=== PATIENT | female | born 1990 | race Caucasian/White ===

== ENCOUNTER 2017-01-04 18:14 | Emergency (ER) | payer MEDICARE, MEDICAID ==
[~2017-01-04] VITALS: Ht 154.9 cm; Wt 59.0 kg
[~2017-01-04 18:14] MED LIST: AMOXIL500 MG PO; AZITHROMYCIN250 MG PO; BENZONATATE100 MG PO; CIPRO 500MG TA500 MG PO; LORTAB 5/500 501 TAB PO; MOTRIN 400MG.400 MG PO; NIFEDIPINE 10MG10 MG PO; NOMEDS; PHENERGAN 25MG.25 M1 PO; PRENATAL PLUS1 TA1 PO; PYRIDIUM100 M1 PO; TESSALON PERLE200 MG PO; ZITHROMAX Z PA250 MG PO
[2017-01-04 19:06] LABS: LYMPH # 4.5 K/mm3 (0.7-4.5); LYMPH % 39.5 % (10-50.0)
[2017-01-04 19:07] LABS: HEMOGLOBIN 15.6 g/dL (12.2-16.2)
[2017-01-04 19:23] LABS: BUN 16 mg/dL (7-18)
[2017-01-04 19:28] LABS: GFR (ESTIMATED) 87 ML/MIN (59-)
--- NOTE | 2017-01-04 20:43 | Emergency Room Report ---
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 N Clinical Suspician of Infection? N Mental Status: 1 - Regular (Normal Baseline) Sepsis Risk:Low Sepsis Risk Have you (or family members/close friends) recently traveled outside the [place]? N If Yes, where/when: Have you had exposure to infectious disease within the past month? N TB? Other? Specify: Source patient, RN notes reviewed, old records Exam Limitations no limitations Comment pt with lifting couch yesterday - with burning post scapular pain worse with use and touch Cardiac Chest Pain Chest pain indicative of cardiac No Timing/Duration this evening Severity moderate ALLERGIES Coded Allergies: MDX - Cephalexin (Cephalexin) (Severe, [id number]/THROAT 01/04/17) Converted from Generic Allergy: Cephalexin Hcl Converted from Ingredient Allergy: Cephalexin MDX - Cephalosporin (Cephalosporin) (Severe, 01/04/17) Converted from Drug Class Allergy: Cephalosporins MDX - Codeine (Codeine) (Intermediate, I-HIVES 01/04/17) Converted from Ingredient Allergy: Codeine Home Medications Active Scripts Promethazine Hydrochloride (Phenergan 25MG Tab) 25 MG PO Q6H PRN #10 Prov: 06/16/12 Reported Medications No Home Medications (NO HOME MEDICATIONS) History Medical History General CAD? No Angina: No [place]: No Hypertension? No Hyperlipidemia? No CHF? No DVT? No PE? No COPD? No Asthma? Yes Anemia? Yes GERD? No Gastric ulcers? No GI Bleed? No Hernia? No Thyroid Problems? No Hypothyroidism? No CVA? No Seizures? No Diabetes? No Renal Insuffiency? No End Stage Renal Disease? No UTI? Yes Stones? No BPH? No GB Disease: No Nephritic Syndrome? No Asplenia? No Hepatitis? No Sickle Cell Disease? No Arthritis? No Migraines? No Cataracts? No Glaucoma? No MRSA? No HIV? No TB? No Anxiety? Yes Depression? No Cancer? Yes Site: SKIN More? 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 Respiratory denies cough, denies shortness of breath, denies wheezing Cardiovascular denies chest pain, denies palpitations, denies syncope Gastrointestinal denies abdominal pain, denies diarrhea, denies vomiting Genitourinary denies: dysuria, frequency, hesitancy, hematuria. Musculoskeletal see HPI, denies back pain, denies joint pain, denies joint swelling, denies neck pain, other Skin denies rash Psychiatric/Neurological denies headache, denies seizure Physical Exam Vital Signs Vital Signs Date Time Temp Pulse Resp B/P Pulse O2 O2 Flow FiO2 Ox Delivery Rate 01/04 2039 99.0 88 20 111/85 100 01/04 1937 97.9 88 42 119/70 100 01/04 1845 78 18 118/60 100 01/04 1823 97.5 81 18 120/58 100 - WBC >12,000 or <4,000 or 10% bands? 2 or more SIRS Criteria Met? B/P:111/85 MAP:78 Creatinine >2.0? UA output<0.5ml/kg/hr for 2 hrs? Platelet count >100,000? Lactate >2.0mmol/1? INR >1.2 or PTT > than 60 sec? Evidence of Organ Dysfunction? Provider documented clinical suspician of infection? N Sepsis Criteria Count: 0 Sepsis Risk: Low Sepsis Risk General Appearance no apparent distress Eye Exam - bilateral eye PERRL, bilateral eye EOMI Ear, Nose, Throat normal ENT inspection Neck tender lateral Respiratory Status No: respiratory distress. Lung Sounds bilateral: lungs clear. 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 No Results/Orders Laboratory Tests 01/04/171833: Sodium 140, Potassium 3.7, Chloride 103, Carbon Dioxide 27, BUN 16, Creatinine 0.8, Estimated Creat Clear 99, Estimated GFR (MDRD) 87, Glucose 100, Calcium 9.1 , Total Bilirubin 0.6, AST 13 L, ALT 22, Alkaline Phosphatase 63, Creatine Kinase 61, CK-MB (CK-2) Rel Index 1.6, CK and CKMB Interp 1.0, Troponin I < 0.02 , Total Protein 7.7, Albumin 3.7, Globulin 4.0 H, Albumin/Globulin Ratio 0.9 L , WBC 11.3 H, RBC 4.94, Hgb 15.6, Hct 44.5, MCV 90.1, RDW 13.1, Plt Count 277, MPV 6.3 L, Gran % 54.9, Gran # 6.2, Lymphocytes % 39.5, Monocytes % 3.9, Eosinophils % 1.5, Basophils % 0.2, Lymphocytes # 4.5, Monocytes # 0.4, Eosinophils # 0.2, Basophils # 0.0, PUBS MCHC 35.0, MCH 31.6 H Current Medication Orders Sig/Bruna Start time Last Medication Dose Route Stop Time Status Admin Sodium Chloride 10 ML PRN PRN 01/04 1830 DC IV 01/05 1825 Orders Procedure Date/time Status CHEST(2 VIEWS-NOT PORTABLE) 01/04 2037 Active ELECTROCARDIOGRAM REQUEST 01/04 1825 Active CBC WITH AUTO DIFF 01/04 1825 Complete CARDIAC ENZYMES 01/04 1825 Complete CHEM 12 PROFILE 01/04 1825 Complete 12 LEAD EKG-BLUESON (INITIAL) 01/04 UNK Active 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 ST/Twave chgs XRAY/CT/US XRAY/CT/US XRAY chest XR interpretation by reviewed by me Xray Results normal/NAD Departure Departure Time of Disposition 2112 Disposition DC Home or Self Care(routine) Clinical Impression Primary Impression: Acute thoracic myofascial strain Qualifiers: Encounter type: initial encounter Qualified Code: S29.019A - Strain of muscle and tendon of unspecified wall of thorax, initial encounter Condition STABLE Referrals NO REFERRAL (Family) Patient Instructions DI for Thoracic Back Pain Additional Instructions use meds and see pcp for follow up Discharge Counseling Counseled pt/family regarding diagnosis, test results, medications/RX, follow up needs Prescriptions Current Visit Scripts Prednisone (Prednisone 20MG) 20 MG PO BID #10 TAB ED Critical Care Critical Care No at [id number]
--- NOTE | 2017-01-04 20:43 | Emergency Room Report ---
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 N Clinical Suspician of Infection? N Mental Status: 1 - Regular (Normal Baseline) Sepsis Risk:Low Sepsis Risk Have you (or family members/close friends) recently traveled outside the [place]? N If Yes, where/when: Have you had exposure to infectious disease within the past month? N TB? Other? Specify: Source patient, RN notes reviewed, old records Exam Limitations no limitations Comment pt with lifting couch yesterday - with burning post scapular pain worse with use and touch Cardiac Chest Pain Chest pain indicative of cardiac No Timing/Duration this evening Severity moderate ALLERGIES Coded Allergies: MDX - Cephalexin (Cephalexin) (Severe, [id number]/THROAT 01/04/17) Converted from Generic Allergy: Cephalexin Hcl Converted from Ingredient Allergy: Cephalexin MDX - Cephalosporin (Cephalosporin) (Severe, 01/04/17) Converted from Drug Class Allergy: Cephalosporins MDX - Codeine (Codeine) (Intermediate, I-HIVES 01/04/17) Converted from Ingredient Allergy: Codeine Home Medications Active Scripts Promethazine Hydrochloride (Phenergan 25MG Tab) 25 MG PO Q6H PRN #10 Prov: 06/16/12 Reported Medications No Home Medications (NO HOME MEDICATIONS) History Medical History General CAD? No Angina: No [place]: No Hypertension? No Hyperlipidemia? No CHF? No DVT? No PE? No COPD? No Asthma? Yes Anemia? Yes GERD? No Gastric ulcers? No GI Bleed? No Hernia? No Thyroid Problems? No Hypothyroidism? No CVA? No Seizures? No Diabetes? No Renal Insuffiency? No End Stage Renal Disease? No UTI? Yes Stones? No BPH? No GB Disease: No Nephritic Syndrome? No Asplenia? No Hepatitis? No Sickle Cell Disease? No Arthritis? No Migraines? No Cataracts? No Glaucoma? No MRSA? No HIV? No TB? No Anxiety? Yes Depression? No Cancer? Yes Site: SKIN More? 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 Respiratory denies cough, denies shortness of breath, denies wheezing Cardiovascular denies chest pain, denies palpitations, denies syncope Gastrointestinal denies abdominal pain, denies diarrhea, denies vomiting Genitourinary denies: dysuria, frequency, hesitancy, hematuria. Musculoskeletal see HPI, denies back pain, denies joint pain, denies joint swelling, denies neck pain, other Skin denies rash Psychiatric/Neurological denies headache, denies seizure Physical Exam Vital Signs Vital Signs Date Time Temp Pulse Resp B/P Pulse O2 O2 Flow FiO2 Ox Delivery Rate 01/04 2039 99.0 88 20 111/85 100 01/04 1937 97.9 88 42 119/70 100 01/04 1845 78 18 118/60 100 01/04 1823 97.5 81 18 120/58 100 - WBC >12,000 or <4,000 or 10% bands? 2 or more SIRS Criteria Met? B/P:111/85 MAP:78 Creatinine >2.0? UA output<0.5ml/kg/hr for 2 hrs? Platelet count >100,000? Lactate >2.0mmol/1? INR >1.2 or PTT > than 60 sec? Evidence of Organ Dysfunction? Provider documented clinical suspician of infection? N Sepsis Criteria Count: 0 Sepsis Risk: Low Sepsis Risk General Appearance no apparent distress Eye Exam - bilateral eye PERRL, bilateral eye EOMI Ear, Nose, Throat normal ENT inspection Neck tender lateral Respiratory Status No: respiratory distress. Lung Sounds bilateral: lungs clear. 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 No Results/Orders Laboratory Tests 01/04/171833: Sodium 140, Potassium 3.7, Chloride 103, Carbon Dioxide 27, BUN 16, Creatinine 0.8, Estimated Creat Clear 99, Estimated GFR (MDRD) 87, Glucose 100, Calcium 9.1 , Total Bilirubin 0.6, AST 13 L, ALT 22, Alkaline Phosphatase 63, Creatine Kinase 61, CK-MB (CK-2) Rel Index 1.6, CK and CKMB Interp 1.0, Troponin I < 0.02 , Total Protein 7.7, Albumin 3.7, Globulin 4.0 H, Albumin/Globulin Ratio 0.9 L , WBC 11.3 H, RBC 4.94, Hgb 15.6, Hct 44.5, MCV 90.1, RDW 13.1, Plt Count 277, MPV 6.3 L, Gran % 54.9, Gran # 6.2, Lymphocytes % 39.5, Monocytes % 3.9, Eosinophils % 1.5, Basophils % 0.2, Lymphocytes # 4.5, Monocytes # 0.4, Eosinophils # 0.2, Basophils # 0.0, PUBS MCHC 35.0, MCH 31.6 H Current Medication Orders Sig/Bruna Start time Last Medication Dose Route Stop Time Status Admin Sodium Chloride 10 ML PRN PRN 01/04 1830 DC IV 01/05 1825 Orders Procedure Date/time Status CHEST(2 VIEWS-NOT PORTABLE) 01/04 2037 Active ELECTROCARDIOGRAM REQUEST 01/04 1825 Active CBC WITH AUTO DIFF 01/04 1825 Complete CARDIAC ENZYMES 01/04 1825 Complete CHEM 12 PROFILE 01/04 1825 Complete 12 LEAD EKG-BLUESON (INITIAL) 01/04 UNK Active 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 ST/Twave chgs XRAY/CT/US XRAY/CT/US XRAY chest XR interpretation by reviewed by me Xray Results normal/NAD Departure Departure Time of Disposition 2112 Disposition DC Home or Self Care(routine) Clinical Impression Primary Impression: Acute thoracic myofascial strain Qualifiers: Encounter type: initial encounter Qualified Code: S29.019A - Strain of muscle and tendon of unspecified wall of thorax, initial encounter Condition STABLE Referrals NO REFERRAL (Family) Patient Instructions DI for Thoracic Back Pain Additional Instructions use meds and see pcp for follow up Discharge Counseling Counseled pt/family regarding diagnosis, test results, medications/RX, follow up needs Prescriptions Current Visit Scripts Prednisone (Prednisone 20MG) 20 MG PO BID #10 TAB ED Critical Care Critical Care No at [id number]
[2017-01-04] MEDS ORDERED: PREDNISONE 20MG20 MG PO (21:15)
[2017-01-04 21:37] VITALS: BP 107/73
--- NOTE | 2017-01-05 05:49 | RADIOLOGY REPORT PS360 ---
CHEST(2 VIEWS-NOT PORTABLE) HISTORY: chest pain ORDERING PHYSICIAN: Deirdre Venegas MD PATIENT AGE: 26 years COMPARISON: None available FINDINGS: The cardiomediastinal silhouette and pulmonary vascularity are within normal limits. The lungs are clear without infiltrates, suspicious nodules, or pleural effusions. No acute bony abnormalities. IMPRESSION: Negative chest, no acute finding
--- OUTSIDE RECORDS SUMMARY | 2017-01-05 08:30 | External Medical Summary Rpt ---
Author Author , Organization [employer] Address Unknown Phone Unavailable Care Team Providers Care Border Measurer Name Role Phone JOSE MIGUEL DOW, Unavailable Unavailable JOSE MIGUEL DOW [facility], Unavailable Unavailable [facility] DEEPAKTANA Carnes, DEEPAK, Unavailable Unavailable TANA ERIC SOLIS Unavailable Unavailable [facility] Unavailable Unavailable [facility] ALTHEA MURPHY, Unavailable Unavailable ALTHEA MURPHY JASON N, Unavailable Unavailable THERESE DE LA GARZA [facility] Unavailable Unavailable SERVICE, [facility] FARRUKH STUBBS BUCK, Unavailable Unavailable FARRUKH GORDON LAR, GORDON LAR Unavailable Unavailable SARAH GORDON, Unavailable Unavailable SARAH GORDON J G, Unavailable Unavailable Ziggy NUNEZ [facility], Unavailable Unavailable [facility] ALTHEA DALEY, Unavailable Unavailable ALTHEA DALEY NIMCO, MCCORMACK Unavailable Unavailable NIMCO KSENIA RINALDI, MCCORMACK Unavailable Unavailable KENDRA WEI, Unavailable Unavailable KENDRA MCCORMACK [facility], Unavailable Unavailable [facility] Unavailable Unavailable LAB, [facility] ANEST[facility] Unavailable Unavailable [facility], D & Unavailable [facility] DELAMATA, NUNU, Unavailable Unavailable DELAMATA, NUNU [facility] Unavailable Unavailable [facility], Unavailable [facility]available [facility] GAGE, DHIRENKUMAR, Unavailable Unavailable GAGE, DHIRENKUMAR VARSHA ESTEBAN, Unavailable Unavailable VARSHA ESTEBAN FINLEY Unavailable Unavailable [email or web address] Unavailable Unavailable #[id number], [id number] DM GARCIA, Unavailable Unavailable DM GARCIA [facility], [facility] Un[facility] ALTHEA WAITE, Unavailable Unavailable GEVEDON, ALTHEA M GRANDE LEXI, GRANDE LEXI Unavailable Unavailable GRANDE LEXI, GRANDE LEXI Unavailable Unavailable HARPEL BJ, HARPEL Unavailable Unavailable BJ THERESE DAVIS, Unavailable Unavailable THERESE DAVIS [facility] Unavailable Unavailable [facility] Unavailable Unavailable [facility], [facility] FARHANA ANDERS, Unavailable Unavailable FARHANA ANDERS [facility] Unavailable Unavailable P[facility], [facility] SIMONE ESPINAL, Unavailable Unavailable SIMONE ESPINAL MARIA, JONES, Unavailable Unavailable ALTHEA ROSAS, Unavailable Unavailable ALTHEA DAILY ROBERT J, Unavailable Unavailable ALTHEA PEMBERTON III GAUTAM, Unavailable Unavailable IGLESIA III GAUTAM [facility], Unavailable Unavailable [facility], Unavailable Unavailable [facility] EDDIE HIGH, Unavailable Unavailable EDDIE HIGH MAX, JHON P, MAX, Unavailable Unavailable JHON P [facility]RI[facility] DAN[facility], Unavailable Unavailable [facility] D[facility]ISH RICHARD PALOMINO, Unavailable Unavailable RICHARD PALOMINO [facility] Unavailable [facility] KELSIE BRIDGES, Unavailable Unavailable KELSIE BRIDGES MOHAMMAD A, Unavailable Unavailable NEELIMA BERGER A DILSHAD LOWE, Unavailable Unavailable DILSHAD LOWE WILLIAM M, Unavailable Unavailable KELSIE SOTELO A R, PATEL, A Unavailable Unavailable [facility] Unavailable Unavailable LAB, [facility], DAWSON FERMIN Unavailable Unavailable [facility] Unavailable Unavailable AUTHORITY, [facility] KELSIE MENDENHALL, Unavailable Unavailable KELSIE MENDENHALL [facility], Unavailable Unavailable [id number], Unavailable Unavailable [id number] Unavailable Unavailable [id number] # [id number], [facility] [id number] # [id number] NIA BEAR, Unavailable Unavailable NIA BEAR WALTER L, Unavailable Unavailable TAB WYNN SOKAN, KUSHAL O, Unavailable Unavailable SOKAN, KUHSAL O [facility] Un[facility]available T[facility]ATMENT [facility], [facility], Unavailable Unavailable [id number], Unavailable Unavailable [id number] YAYO SANDY, KELSIE, Unavailable Unavailable KELSIE ZEE III, MICHELE M, Unavailable Unavailable CIRA MANRIQUEZ [facility] Unavailable Unavailable OF [place], [facility] Trice ORDONEZ WRIGHT, Unavailable Unavailable MUKESH ALEMAN, Unavailable Unavailable MUKESH VERDIN Continuity of Care Document - 09-07-2007 through 2016 Problems Code Diagnosis DOS Provider Status I959 HYPOTENSION 08-03-2015 [facility] UNSPECIFIED EMS L259 UNSPECIFIED 08-03-2015 [facility] DERMATITIS PHYS UNSPECIFIED CAUSE R000 TACHYCARDIA 08-03-2015 [facility] UNSPECIFIED EMS R209 UNSPECIFIED 08-03-2015 [facility] DISTURBANCE EMS S OF SKIN SENSATION R231 PALLOR 08-03-2015 [facility] N [facility]ERG[facility] PHYS [id number] ALLERGY 08-03-2015 [facility]- UNSPECIFIED [facility] INITIAL EMS ENCOUNTER V154 PERS HX 12-06-2014 [facility] AL TRAUMA PRS [facility] 7862 COUGH 10-21-2014 [facility] 6200 FOLLICULAR 06-17-2012 [facility] CYST OF [facility] OVARY INC 6202 OTHER AND 06-16-2012 [facility] UNSPECIFIED [facility] OVARIAN INC CYST 53597 ERLY ONSET 01-09-2012 KSENIA [facility]CO DELIV DELIV W/WO MENTION ANTPRTM COND 650 NORMAL 01-09-2012 [facility] DELIVERY ANESTH OF THE MURRIETA 99282 FIRST-DEGRE 01-09-2012 KSENIA NIMCO E PERINEAL LACERATION WITH DELIVERY V270 OUTCOME OF 01-09-2012 MCCORMACK [facility] DELIVERY SINGLE LIVEBORN 25881 THREATENED 01-06-2012 MCCORMACK [facility] PREMATURE LABOR ANTEPARTUM V221 SUPERVISION 01-06-2012 MCCORMACK NIMCO OF OTHER NORMAL 13052 EXCESS 2011 KSENIA NIMCO GROWTH AFFECT MGMT MOTH ANTPRTM 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 2011 KSENIA NIMCO IOS ANTEPARTUM COMPLICATIO N 94259 OTH 12-12-2011 [facility] ABNORMALITY -NEC-APC/C V237 INSUFFICIEN 12-12-2011 [facility] FAN T CARE V2389 SUPERVISION 12-12-2011 ERIC FAN OF OTHER HIGH-RISK 7910 PROTEINURIA 11-25-2011 KSENIA NIMCO 83826 MATERNAL RX 10-10-2011 KSENIA NIMCO DEPEND COMPL PG CB/PP UNS EOC V283 ENCOUNTER 09-24-2011 [facility] RINALDI ROUTINE SCREEN MALFORMATIO N ULTRASONIC 4660 ACUTE 09-09-2011 [facility] BRONCHITIS [facility] INC 490 BRONCHITIS 09-09-2011 GRANDE LEXI NOT SPECIFIED ACUTE OR CHRONIC 4770 ALLERGIC 09-24-2010 [facility] URGENT DUE TO TREATMENT A POLLEN 17347 EXTRINSIC 09-24-2010 [facility] ASTHMA, URGENT UNSPECIFIED TREATMENT A V242 ROUTINE 08-07-2010 [facility] [place] V7231 ROUTINE 08-07-2010 [facility] CL[facility]IC OF EXAMINATION [place] 2809 UNSPECIFIED 04-02-2010 [facility] ANEMIA 462 ACUTE 03-24-2010 [facility] 76340 ASTHMA, 03-24-2010 [facility] UNSPECIFIED [facility] , INC UNSPECIFIED STATUS 43306 ASTHMA 03-24-2010 [facility] UNSPECIFIED EMERGENCY WITH SERVICES EXACERBATIO ASSOCIATES N 2859 UNSPECIFIED 03-05-2010 [facility]IA PHYSICIAN GROUP PCC 58740 MATERNAL 03-05-2010 [facility] ANEMIA PHYSICIAN W/DELIVERY GROUP [facility] W/CURRENT PPC V3000 SINGLE 03-03-2010 [facility] VERDIN LIVEBORN [facility] W/O V502 ROUTINE OR 03-03-2010 [facility] VERDIN RITUAL [facility] CIRCUMCISIO N V220 SUPERVISION 02-26-2010 [facility] NORMAL [facility]YSICI[facility] FIRST LAB 51555 ABN MAT 12-25-2009 [facility] GLUCOSE [facility] TOLERANCE INC COMPL PG CB/PP UNS EOC 1121 CANDIDIASIS 12-21-2009 [facility] [place] [facility] 69498 UNSPECIFIED 12-21-2009 [facility] KESHAWN TIS [facility] 04139 ABNORMAL 12-21-2009 [facility] MATERNAL HEALTH GLUCOSE CLINIC OF [place]ANCE [place] ANTEPARTUM [facility] 14106 OTHER 11-21-2009 [facility] THREATENED PHYSICIAN LABOR, GROUP PCC ANTEPARTUM 4619 ACUTE 11-20-2009 ARNOLD, SINUSITIS, JOSE MIGUEL W UNSPECIFIED 18420 HYPEREMESIS 08-11-2009 [facility] W/METAB CLINIC OF DISTURBANCE KESHAWN ANTPRTM [facility] 81291 DEHYDRATION 08-10-2009 [facility] 67524 MILD 08-10-2009 [facility] HYPEREMESIS EMERGENCY GRAVIDARUM SERVICES ANTEPARTUM ASSOCIATES 44892 OTHER 07-31-2009 [facility] SPECIFED HEALTH COMPLICATIO CLINIC OF [place] ANTEPARTUM [facility] V0481 NEED 07-24-2009 [facility] PROPHYLACTI HEALTH C CLINIC OF VACCINATION [place] &INOCULATIO [facility] N FLU V745 SCREENING 07-24-2009 PATHOLOGY & EXAMINATION CYTOLOGY FOR LAB VENEREAL DISEASE 6260 ABSENCE OF 07-16-2009 [facility] MEN[facility]ATIO PHYSICIANS N LAB 3671 MYOPIA 07-13-2009 [facility] 4659 ACUTE URIS 07-03-2009 [facility] EMERGENCY UNSPECIFIED SERVICES SITE ASSOCIATES 08538 UNSPECIFIED 02-18-2009 [facility]RETHRITIS [facility] 5990 URINARY 02-18-2009 [facility] TRACT [facility] INFECTION INC SITE NOT SPECIFIED 75162 ABDOMINAL 02-18-2009 [place] [place], AMBULANCE GENERALIZED SERVICE 9779 POISONING 01-02-2009 [facility] UNSPECIFIED VFD INC DRUG/MEDICI NAL SUBSTANCE 11136 INSOMNIA 01-01-2009 [facility]PEC[facility] 65446 HYPERVENTIL 01-01-2009 [facility] 9651 POISONING 01-01-2009 [facility] E9500 KITTY&SLF-INF 01-01-2009 [facility] PSN-ANALGES MED [facility] -ANTIPYRET- ANTIRHEUMAT 5259 UNSPECIFIED 12-21-2008 [facility] DISORDER HEALTH TEETH&SUPPO CENTRAL RTING BANK ACCT STRUCTURES 7840 HEADACHE 12-19-2008 [facility] ACCT 463 ACUTE 12-14-2008 [facility] 5206 DISTURBANCE 12-14-2008 [place] [facility] S IN TOOTH FOR ERUPTION ORAL&MAXILL OFACIAL SURGERY V0489 NEED PROPH 12-14-2008 [facility] V[facility]ARE &INOCULAT CENTER OTH VIRAL DZ 3128 OTHER 12-06-2008 DEPT FOR SPECIFIED PUBLIC HLTH DISTURBANCE S OF CONDUCT NEC 8488 OTHER 11-30-2008 [facility] [place] SPECIFIED URGENT SITES OF TREATMENT SPRAINS AND ASSOC STRAINS 6149 UNSPEC 11-17-2008 [facility] [place] DISEASE FE URGENT PELVIC TREATMENT ORGANS&TISS ASSOC UES 938 FOREIGN 11-09-2008 [facility] [place] BODY IN RADIOLOGY DIGESTIVE SYSTEM UNSPECIFIED 54744 OPEN WOUND 10-30-2008 [facility] FOREARM N EMERGENCY WITHOUT PHYS INC MENTION COMPLICATIO N E956 SUICIDE&CARMEL 10-30-2008 [facility] F-INFLICT N EMERGENCY INJURY PHYS INC CUT&PIERCIN G INSTRUM 0088 INTESTINAL 10-24-2008 [facility] INFECTION FAMILY DUE TO HEALTHCARE, OTHER [facility] ORGANISM NEC 92483 DIARRHEA 10-19-2008 [facility] [place] [facility] 80858 ABDOMINAL 10-17-2008 [facility] PAIN RIGHT [facility], [facility] 39495 DYSFUNCTION 09-15-2008 [facility], OF KELSIE Harrell EUSTACHIAN TUBE 28850 OTHER 09-15-2008 [facility], CONVULSIONS KELSIE Harrell 3899 UNSPECIFIED 09-03-2008 [facility] LOSS 34587 MEMORY LOSS 09-03-2008 [facility] N EMERGENCY PHYS INC V700 ROUTINE 08-18-2008 [facility], EXAM@HEALTH [facility] CARE FACL 5589 OTH&UNSPEC 07-30-2008 [facility] NONINFECTIO N EMERGENCY US PHYS INC GASTROENTER ITIS&COLITI S 34668 VOMITING 07-30-2008 [facility] ALONE N EMERGENCY PHYS INC 7061 OTHER ACNE 07-28-2008 [facility] 6259 UNSPEC 07-26-2008 [facility] SYMPTOM N EMERGENCY ASSOC PHYS INC W/FEMALE GENITAL ORGANS 7242 LUMBAGO 07-12-2008 [facility] 8830 OPEN WOUND 07-11-2008 [facility] FINGER N EMERGENCY WITHOUT PHYS INC MENTION COMPLICATIO N E9060 DOG BITE 07-11-2008 [facility] N [facility]ERGENCY PHYS INC 57864 UNSPECIFIED 07-07-2008 Ziggy NUNEZ ASTIGMATISM 89039 REFLUX 06-23-2008 [facility] V409 UNSPECIFIED 05-19-2008 [facility] MENTAL OR AMBULANCE BEHAVIORAL AUTHORITY PROBLEM 29413 HEAD 05-18-2008 RADIOLOGY INJURY, SERVICES UNSPECIFIED 52048 INJURY OF 05-18-2008 [facility] FACE AND SERVICES NECK OTHER AND UNSPECIFIED 9592 INJURY 05-18-2008 [facility] OTHER&UNSPE SERVICES CIFIED SHOULDER&UP PER ARM 8901 OPEN WOUND 02-07-2008 PFLANZE, OF HIP AND KELSIE THIGH COMPLICATED 9160 HIP THI 02-07-2008 [facility] LEG&ANK N EMERGENCY ABRASION/FR PHYSICIAN ICION BURN INC W/O INF E9208 ACC CAUSED 02-07-2008 [facility] OTH SPEC N EMERGENCY CUT&PIERCIN PHYSICIAN G INC INSTRUM/OBJ S 7863 HEMOPTYSIS 11-02-2007 ALTHEA PEMBERTON 9399 FOREIGN 11-02-2007 NIECY, BODY UNSPEC ALTHEA Ziggy SITE GENITOURINA RY TRACT 77447 SWELLING OF 10-22-2007 JEFFREY LIMB ALTHEA Messina 9594 INJURY 10-22-2007 JEFFREY, OTHER AND ALTHEA Messina UNSPECIFIED HAND EXCEPT FINGER 4242 TRICUSPID 10-19-2007 LAMBERT, VALVE MUKESH DISORDERS SPEC NONRHEUMATI C 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, VALVE MUKESH DISORDERS 7850 UNSPECIFIED 10-19-2007 VERDIN, MUKESH TACHYCARDIA 7852 UNDIAGNOSED 10-19-2007 LAMBERT CARDIAC MUKESH MURMURS 9351 FOREIGN 10-18-2007 MYNOR, BODY IN DILSHAD Harrell ESOPHAGUS E915 FOREIGN 10-18-2007 MYNOR, BODY DILSHAD Harrell ACCIDENTALL Y ENTERING OTHER ORIFICE Medications Na ND Rx Da Fi Fi Am Da Di Ph RX Ph St me C No te ll ll ou ys ag ar # ys at rm s nt no ma ic us Or Da si cy ia de te s n re d OX 68 02 02 4 60 30 RI 86 AR Ac CA 46 -0 -1 .0 TE 92 NO ti RB 20 3- 7- 00 40 LD ve AZ 13 20 20 AI EP 80 11 11 D RI IN 1 PH CH E AR AR 30 MA D 0 CY W MG 03 TA 93 BL 8 ET # 03 93 PA 00 02 02 4 30 30 RI 86 AR Ac RO 09 -0 -1 .0 TE 92 NO ti XE 37 3- 7- 00 41 LD ve TI 11 20 20 AI NE 59 11 11 D RI 8 PH CH HC AR AR L MA D 20 CY W MG 03 93 TA 8 BL # ET 03 93 PA 00 01 01 1 30 30 RI 86 RI Ac RO 09 -2 -2 .0 TE 74 ES ti XE 37 0- 1- 00 17 ER ve TI 11 20 20 AI NE 59 11 11 D W[place] 8 PH CH HC AR AE L MA L 20 CY J MG 03 93 TA 8 BL # ET 03 93 OX 68 01 01 1 60 30 RI 86 RI Ac CA 46 -2 -2 .0 TE 74 ES ti RB 20 0- 1- 00 18 ER ve AZ 13 20 20 AI EP 80 11 11 D WY IN 1 PH CH E AR AE 30 MA L 0 CY J MG 03 TA 93 BL 8 ET # 03 93 AB 59 01 01 1 30 30 RI 86 RI Ac IL 14 -2 -2 .0 TE 74 ES ti IF 80 1- 1- 00 19 ER ve Y 00 20 20 AI 5 71 11 11 D WY MG 3 PH CH AR AE TA MA L BL CY J ET 03 93 8 # 03 93 00 10 09 5 30 30 RI 80 AR Ac 00 -0 -2 .0 TE 28 NO ti 60 5- 1- 00 21 LD ve 11 20 20 AI 73 09 10 D RI 1 PH CH AR AR MA D CY W 03 93 8 # 03 93 AD 00 10 09 5 60 30 RI 80 AR Ac VA 17 -0 -2 .0 TE 28 NO ti IR 30 5- 1- 00 22 LD ve 69 20 20 AI 25 60 09 10 D RI 0- 0 PH CH 50 AR AR MA D DI CY W SK US 03 93 8 # 03 93 OX 68 10 09 5 60 30 RI 80 AR Ac CA 46 -0 -2 .0 TE 28 NO ti RB 20 5- 1- 00 25 LD ve AZ 13 20 20 AI EP 80 09 10 D RI IN 1 PH CH E AR AR 30 MA D 0 CY W MG 03 TA 93 BL 8 ET # 03 93 HY 00 10 09 5 60 30 RI [address] 18 -0 -2 .0 TE 33 NO ti OX 50 5- 1- 00 06 LD ve YZ 61 20 20 AI IN 30 09 10 D RI E 1 PH CH PA AR AR M MA D 25 CY W MG 03 93 CA 8 P # 03 93 ID 00 05 06 1 20 5 RI 83 CL Ac OM 60 -1 -3 .0 TE 43 AR ti ET 35 8- 0- 00 27 KE ve ORELLANA 43 20 20 AI ZI 82 10 10 D DE NE 1 PH RE AR K 25 MA J CY MG 03 TA 93 BL 8 ET # 03 93 ON 00 05 06 1 12 30 RI 83 CL Ac DA 37 -1 -3 .0 TE 43 AR ti NS 80 8- 0- 00 29 KE ve ET 34 20 20 AI RO 49 10 10 D DE N 3 PH RE HC AR K L MA J 8 CY MG 03 TA 93 BL 8 ET # 03 93 FE 00 06 06 90 30 RI 83 ORELLANA Ac RR 67 -2 -2 .0 TE 99 RP ti OU 70 9- 9- 00 24 EL ve S 07 20 20 AI MOLINA 00 10 10 D GE LF 1 PH RA AT AR LD E MA R 32 CY 5 MG 03 93 TA 8 BL # ET 03 93 TE 00 06 06 40 7 RI 83 CL Ac RB 52 -1 -1 .0 TE 83 AR ti UT 71 7- 7- 00 11 KE ve AL 31 20 20 AI IN 80 10 10 D DE E 1 PH RE MOLINA AR K LF MA J AT CY E 2. 03 5 93 MG 8 # TA 03 B 93 ON 00 05 05 1 12 30 RI 83 CL Ac DA 37 -1 -2 .0 TE 43 AR ti NS 80 8- 6- 00 29 KE ve ET 34 20 20 AI RO 49 10 10 D DE N 3 PH RE HC AR K L MA J 8 CY MG 03 TA 93 BL 8 ET # 03 93 ID 00 05 05 1 20 5 RI 83 CL Ac OM 78 -1 -1 .0 TE 43 AR ti ET 11 8- 8- 00 27 KE ve ORELLANA 83 20 20 AI ZI 00 10 10 D DE NE 1 PH RE AR K 25 MA J CY MG 03 TA 93 BL 8 ET # 03 93 ON 00 12 05 4 10 25 RI 81 CL Ac DA 37 -0 -0 .0 TE 21 AR ti NS 80 5- 4- 00 44 KE ve ET 34 20 20 AI RO 49 09 10 D DE N 3 PH RE HC AR K L MA J 8 CY MG 03 TA 93 BL 8 ET # 03 93 ID 00 04 04 20 5 RI 83 CL Ac OM 78 -3 -3 .0 TE 20 AR ti ET 11 0- 0- 00 50 KE ve ORELLANA 83 20 20 AI ZI 00 10 10 D DE NE 1 PH RE AR K 25 MA J CY MG 03 TA 93 BL 8 ET # 03 93 HY 00 04 04 28 7 RI [address] 60 -2 -2 .3 TE 06 AR ti OC 30 0- 1- 99 74 KE ve OR 53 20 20 AI TI 55 10 10 D DE SO 0 PH RE NE AR K MA J 1% CY CR 03 EA 93 M 8 # 03 93 TE 51 04 04 20 3 RI 83 CL Ac RC 67 -2 -2 .0 TE 06 AR ti ON 21 0- 0- 00 75 KE ve AZ 30 20 20 AI OL 20 10 10 D DE E 0 PH RE 0. AR K 8% MA J CY CR EA 03 M 93 8 # 03 93 TE 51 04 04 1 20 3 RI 83 CL Ac RC 67 -1 -1 .0 TE 01 AR ti ON 21 6- 6- 00 05 KE ve AZ 30 20 20 AI OL 20 10 10 D DE E 0 PH RE 0. AR K 8% MA J CY CR EA 03 M 93 8 # 03 93 ON 00 12 04 4 12 30 RI 81 CL Ac DA 37 -0 -0 .0 TE 21 AR ti NS 80 5- 5- 00 44 KE ve ET 34 20 20 AI RO 49 09 10 D DE N 3 PH RE HC AR K L MA J 8 CY MG 03 TA 93 BL 8 ET # 03 93 ID 00 02 03 1 20 5 RI 82 CL Ac OM 78 -1 -2 .0 TE 10 AR ti ET 11 1- 8- 00 75 KE ve ORELLANA 83 20 20 AI ZI 00 10 10 D DE NE 1 PH RE AR K 25 MA J CY MG 03 TA 93 BL 8 ET # 03 93 ME 00 03 03 1 21 6 RI 82 AR Ac TH 60 -1 -1 .0 TE 56 NO ti YL 34 6- 6- 00 02 LD ve ID 59 20 20 AI ED 31 10 10 D RI NI 5 PH CH SO AR AR LO MA D NE CY W 4 03 MG 93 8 DO # SE 03 PK 93 AZ 59 03 03 1 6. 5 RI 82 AR Ac IT 76 -1 -1 00 TE 56 NO ti HR 23 6- 6- 0 07 LD ve OM 06 20 20 AI YC 00 10 10 D RI IN 1 PH CH AR AR 25 MA D 0 CY W MG 03 TA 93 BL 8 ET # 03 93 FE 00 03 03 6 30 30 RI 82 CL Ac RR 67 -1 -1 .0 TE 47 AR ti OU 70 0- 0- 00 88 KE ve S 07 20 20 AI MOLINA 00 10 10 D DE LF 1 PH RE AT AR K E MA J 32 CY 5 MG 03 93 TA 8 BL # ET 03 93 59 03 03 1 8. 16 RI 82 CL Ac 31 -0 -0 50 TE 44 AR ti 00 8- 8- 0 42 KE ve 57 20 20 AI 92 10 10 D DE 0 PH RE AR K MA J CY 03 93 8 # 03 93 AD 00 10 03 5 60 30 RI 80 AR Ac VA 17 -0 -0 .0 TE 28 NO ti IR 30 5- 5- 00 22 LD ve 69 20 20 AI 25 60 09 10 D RI 0- 0 PH CH 50 AR AR MA D DI CY W SK US 03 93 8 # 03 93 ON 00 12 03 4 12 30 RI 81 CL Ac DA 37 -0 -0 .0 TE 21 AR ti NS 80 5- 5- 00 44 KE ve ET 34 20 20 AI RO 49 09 10 D DE N 3 PH RE HC AR K L MA J 8 CY MG 03 TA 93 BL 8 ET # 03 93 ID 00 02 02 00 20 5 RI 82 CL Ac OM 78 -1 -2 .0 TE 10 AR ti ET 11 1- 6- 00 75 KE ve ORELLANA 83 20 20 AI ZI 00 10 10 D DE NE 1 PH RE AR K 25 M J #3 MG 93 8 TA BL ET ON 00 12 02 02 12 30 RI 81 CL Ac DA 37 -0 -1 .0 TE 21 AR ti NS 80 5- 1- 00 44 KE ve ET 34 20 20 AI RO 49 09 10 D DE N 3 PH RE HC AR K L M J 8 #3 MG 93 8 TA BL ET PN 42 11 02 01 30 30 RI 80 AR Ac V- 19 -1 -1 .0 TE 79 NO ti DH 20 0- 1- 00 40 LD ve A 32 20 20 AI SO 13 09 10 D RI FT 0 PH CH GE AR AR L M D #3 W 93 8 ID 68 01 01 00 30 7 RI 81 CL Ac OM 38 -1 -2 .0 TE 78 AR ti ET 20 9- 8- 00 04 KE ve ORELLANA 04 20 20 AI ZI 00 10 10 D DE NE 1 PH RE AR K 12 M J .5 #3 93 MG 8 TA BL ET ON 00 12 01 01 12 30 RI 81 CL Ac DA 37 -0 -1 .0 TE 21 AR ti NS 80 5- 4- 00 44 KE ve ET 34 20 20 AI RO 49 09 10 D DE N 3 PH RE HC AR K L M J 8 #3 MG 93 8 TA BL ET ID 68 12 01 00 30 7 RI 81 CL Ac OM 38 -2 -1 .0 TE 49 AR ti ET 20 9- 4- 00 44 KE ve ORELLANA 04 20 20 AI ZI 00 09 10 D DE NE 1 PH RE AR K 12 M J .5 #3 93 MG 8 TA BL ET ID 68 12 12 00 30 7 RI 81 CL Ac OM 38 -1 -3 .0 TE 32 AR ti ET 20 5- 1- 00 16 KE ve ORELLANA 04 20 20 AI ZI 00 09 09 D DE NE 1 PH RE AR K 12 M J .5 #3 93 MG 8 TA BL ET HY 00 10 12 01 60 30 RI [address] 18 -0 -1 .0 TE 33 NO ti OX 50 5- 7- 00 06 LD ve YZ 61 20 20 AI IN 30 09 09 D RI E 1 PH CH PA AR AR M M D 25 #3 W 93 MG 8 CA P ON 00 12 12 00 12 30 RI 81 CL Ac DA 37 -0 -1 .0 TE 21 AR ti NS 80 5- 7- 00 44 KE ve ET 34 20 20 AI RO 49 09 09 D DE N 3 PH RE HC AR K L M J 8 #3 MG 93 8 TA BL ET ID 00 11 12 00 20 5 RI 80 CL Ac OM 78 -1 -0 .0 TE 90 AR ti ET 11 7 3- 00 15 KE ve ORELLANA 83 20 20 AI ZI 00 09 09 D DE NE 1 PH RE AR K 25 M J #3 MG 93 8 TA BL ET 59 11 11 00 30 30 RI 80 AR Ac 63 -1 -1 .0 TE 79 NO ti 00 0- 9- 00 40 LD ve 41 20 20 AI 83 09 09 D RI 0 PH CH AR AR M D #3 W 93 8 AM 65 10 11 00 30 10 RI 80 SO Ac OX 86 -2 -0 .0 TE 60 KA ti IC 20 7 5- 00 03 N ve IL 01 20 20 AI BA LI 70 09 09 D BA N 5 PH TU 50 AR ND 0 M E MG #3 O 93 CA 8 PS UL E BE 65 10 11 00 15 5 RI 80 SO Ac NZ 16 -2 -0 .0 TE 60 KA ti ON 20 01 N ve AT 53 20 20 AI BA AT 71 09 09 D BA E 0 PH TU 20 AR ND 0 M E MG #3 O 93 CA 8 PS UL E CI 55 10 10 00 15 30 RI 80 AR Ac TA 11 -0 -2 .0 TE 28 NO ti LO 10 5- 2- 00 27 LD ve ID 34 20 20 AI AM 40 09 09 D RI 1 PH CH HB AR AR R M D 40 #3 W 93 MG [address] 00 10 10 00 60 30 RI 80 AR Ac RA 00 -0 -2 .0 TE 33 NO ti TT 23 5- 2- 00 05 LD ve ER 22 20 20 AI A 83 09 09 D RI 25 0 PH CH AR AR MG M D #3 W CA 93 PS 8 UL E AD 00 10 10 00 60 30 RI 80 AR Ac VA 17 -0 -2 .0 TE 28 NO ti IR 30 5- 2- 00 22 LD ve 69 20 20 AI 25 60 09 09 D RI 0- 0 PH CH 50 AR AR M D DI #3 W SK 93 US 8 OX 68 10 10 00 60 30 RI 80 AR Ac CA 46 -0 -2 .0 TE 28 NO ti RB 20 5- 2- 00 25 LD ve AZ 13 20 20 AI EP 80 09 09 D RI IN 1 PH CH E AR AR 30 M D 0 #3 W MG 93 8 TA BL ET 00 10 10 00 50 25 RI 80 AR Ac 06 -0 -2 .0 TE 28 NO ti 60 5- 2- 00 24 LD ve 49 20 20 AI 45 09 09 D RI 5 PH CH AR AR M D #3 W 93 8 HY 00 10 10 00 60 30 RI [address] 18 -0 -2 .0 TE 33 NO ti OX 50 5- 2- 00 06 LD ve YZ 61 20 20 AI IN 30 09 09 D RI E 1 PH CH PA AR AR M M D 25 #3 W 93 MG 8 CA P 00 10 10 00 30 30 RI 80 AR Ac 00 -0 -2 .0 TE 28 NO ti 60 5- 2- 00 21 LD ve 11 20 20 AI 73 09 09 D RI 1 PH CH AR AR M D #3 W 93 8 HY 00 03 05 00 60 30 WA [address] 18 -3 -0 .0 LG 98 RA ti OX 50 1- 7- 00 RE 41 BE ve YZ 61 20 20 EN RG IN 30 09 09 S E 1 #1 DA PA 03 M 15 D 25 MG CA P OX 68 03 05 00 60 30 WA 17 SH Ac CA 46 -3 -0 .0 LG 98 RA ti RB 20 1- 7- 00 RE 40 BE ve AZ 13 20 20 EN RG EP 80 09 09 S IN 1 #1 DA E 03 30 15 D 0 MG TA BL ET CI 65 03 05 00 30 30 WA 17 SH Ac TA 86 -3 -0 .0 LG 98 RA ti LO 20 1- 7- 00 RE 36 BE ve ID 00 20 20 EN RG AM 70 09 09 S 1 #1 DA HB 03 R 15 D 40 MG TA BL ET 00 03 05 00 30 30 WA 17 SH Ac 00 -1 -0 .0 LG 98 RA ti 60 8- 7- 00 RE 42 BE ve 11 20 20 EN RG 73 09 09 S 1 #1 DA 03 15 D ME 00 04 04 00 21 6 RI 24 CL Ac TH 60 -0 -2 .0 TE 08 AR ti YL 34 9- 3- 00 4 K ve ID 59 20 20 AI RO ED 31 09 09 D BE NI 5 #7 RT SO 89 S LO 2 NE 4 MG DO SE PK AM 65 04 04 00 15 5 RI 24 CL Ac OX 86 -0 -2 .0 TE 08 AR ti IC 20 9- 3- 00 5 K ve IL 01 20 20 AI RO LI 70 09 09 D BE N 5 #7 RT 50 89 S 0 2 MG CA PS UL E 00 03 04 00 30 30 TH 50 SH Ac 00 -1 -2 .0 E 31 RA ti 60 8- 3- 00 ID 35 BE ve 11 20 20 ES RG 75 09 09 CR 4 IP DA TI ON D PA D OX 00 04 04 00 20 4 RI 24 CL Ac YC 40 -0 -2 .0 TE 08 AR ti OD 60 9- 3- 00 6 K ve ON 51 20 20 AI RO E- 20 09 09 D BE AC 1 #7 RT ET 89 S AM 2 IN OP HE N 5- 32 5 AM 00 04 04 00 20 10 RI 24 CL Ac OX 09 -1 -2 .0 TE 31 AR ti -C 32 6- 3- 00 7 K ve LA 27 20 20 AI RO V 53 09 09 D BE 87 4 #7 RT 5- 89 S 12 2 5 MG TA BL ET OX 68 03 04 00 60 30 TH 50 SH Ac CA 46 -3 -0 .0 E 29 RA ti RB 20 9 00 ID 86 BE ve AZ 13 20 20 ES RG EP 80 09 09 CR IN 1 IP DA E TI 30 ON D 0 MG PA D TA BL ET HY 00 03 04 00 60 30 TH [address] 18 -3 -0 .0 E 29 RA ti OX 50 9 ID 85 BE ve YZ 61 20 20 ES RG IN 30 09 09 CR E 1 IP DA PA TI M ON D 25 PA MG D CA P CI 00 03 04 00 30 30 TH 50 SH Ac TA 18 -3 -0 .0 E 29 RA ti LO 50 1 9- 00 ID 84 BE ve ID 37 20 20 ES RG AM 30 09 09 CR 1 IP DA HB TI R ON D 40 PA MG D TA BL ET AM 00 03 04 00 14 7 TH 50 SH Ac OX 78 -3 -0 .0 E 29 RA ti IC 12 1- 9- 00 ID 83 BE ve IL 61 20 20 ES RG LI 30 09 09 CR N 5 IP DA 50 TI 0 ON D MG PA CA D PS UL E ZY 00 01 03 01 14 14 D 11 HI Ac ID 00 -0 -2 .0 & 13 LL ti EX 24 7- 6- 00 R 27 ve A 45 20 20 PH 5 KE ZY 48 09 09 AR LL DI 5 MA Y S CA K 10 RE MG TA BL ET SI 00 02 03 01 30 30 D 11 HI Ac NG 00 -0 -2 .0 & 19 LL ti UL 60 8- 6- 00 R 02 ve AI 11 20 20 PH 0 KE R 72 09 09 AR LL 10 8 MA Y CA K MG RE TA BL ET RA 00 10 03 05 30 30 D 10 HI Ac NI 17 -1 -1 .0 & 58 LL ti TI 24 5- 2- 00 R 41 ve DI 35 20 20 PH 4 KE NE 77 08 09 AR LL 0 MA Y 15 CA K 0 RE MG TA BL ET RA 00 10 02 04 30 30 D 10 HI Ac NI 17 -1 -2 .0 & 58 LL ti TI 24 5- 6- 00 R 41 ve DI 35 20 20 PH 4 KE NE 77 08 09 AR LL 0 MA Y 15 CA K 0 RE MG TA BL ET CI 00 11 02 04 15 30 D 10 HI Ac TA 09 -2 -2 .0 & 87 LL ti LO 34 1- 6- 00 R 72 ve ID 74 20 20 PH 4 KE AM 10 08 09 AR LL 1 MA Y HB CA K R RE 20 MG TA BL ET ID 00 02 02 00 5. 1 D 11 HI Ac OM 78 -1 -2 00 & 38 LL ti ET 11 7- 6- 0 R 40 ve ORELLANA 83 20 20 PH 8 KE ZI 00 09 09 AR LL NE 1 MA Y CA K 25 RE MG TA BL ET SI 00 02 02 00 30 30 D 11 HI Ac NG 00 -0 -2 .0 & 19 LL ti UL 60 8- 6- 00 R 02 ve AI 11 20 20 PH 0 KE R 72 09 09 AR LL 10 8 MA Y CA K MG RE TA BL ET ZY 00 01 02 01 30 30 D 11 HI Ac ID 00 -0 -1 .0 & 13 LL ti EX 24 7- 2- 00 R 27 ve A 45 20 20 PH 5 KE ZY 48 09 09 AR LL DI 5 MA Y S CA K 10 RE MG TA BL ET BA 00 10 02 03 28 28 D 10 HI Ac LZ 55 -1 -1 .0 & 58 LL ti IV 59 5- 2- 00 R 39 ve A 03 20 20 PH 9 KE 28 45 08 09 AR LL 8 MA Y TA CA K BL RE ET CI 00 11 01 03 15 30 D 10 HI Ac TA 09 -2 -3 .0 & 87 LL ti LO 34 1- 0- 00 R 72 ve ID 74 20 20 PH 4 KE AM 10 08 09 AR LL 1 MA Y HB CA K R RE 20 MG TA BL ET 00 11 01 01 46 5 D 10 HI Ac 78 -2 -3 .6 & 87 LL ti 17 1- 0- 00 R 73 ve 05 20 20 PH 8 KE 45 08 09 AR LL 9 MA Y CA K RE RA 00 10 01 03 30 30 D 10 HI Ac NI 17 -1 -3 .0 & 58 LL ti TI 24 5- 0- 00 R 41 ve DI 35 20 20 PH 4 KE NE 77 08 09 AR LL 0 MA Y 15 CA K 0 RE MG TA BL ET 00 10 01 03 30 30 D 10 HI Ac 00 -1 -3 .0 & 58 LL ti 60 5- 0- 00 R 38 ve 11 20 20 PH 7 KE 75 08 09 AR LL 4 MA Y CA K RE BA 00 10 01 02 28 28 D 10 HI Ac LZ 55 -1 -1 .0 & 58 LL ti IV 59 5- 5- 00 R 39 ve A 03 20 20 PH 9 KE 28 45 08 09 AR LL 8 MA Y TA CA K BL RE ET ZY 00 01 01 00 30 30 D 11 HI Ac ID 00 -0 -1 .0 & 13 LL ti EX 24 7- 5- 00 R 27 ve A 45 20 20 PH 5 KE ZY 48 09 09 AR LL DI 5 MA Y S CA K 10 RE MG TA BL ET 00 12 01 00 46 5 D 11 HI Ac 78 -1 -1 .6 & 04 LL ti 17 9- 5- 00 R 29 ve 05 20 20 PH 5 KE 45 08 09 AR LL 9 MA Y CA K RE CI 00 12 01 00 2. 5 D 11 HI Ac TA 09 -1 -0 50 & 04 LL ti LO 34 9- 1- 0 R 29 ve ID 74 20 20 PH 0 KE AM 10 08 09 AR LL 5 MA Y HB CA K R RE 20 MG TA BL ET BA 00 12 01 00 28 5 D 11 HI Ac LZ 55 -1 -0 .0 & 04 LL ti IV 59 9- 1- 00 R 28 ve A 03 20 20 PH 9 KE 28 45 08 09 AR LL 8 MA Y TA CA K BL RE ET ID 00 12 01 00 5. 5 D 11 HI Ac OM 78 -1 -0 00 & 04 LL ti ET 11 9- 1- 0 R 29 ve ORELLANA 83 20 20 PH 2 KE ZI 00 08 09 AR LL NE 1 MA Y CA K 25 RE MG TA BL ET RA 00 12 01 00 5. 5 D 11 HI Ac NI 17 -1 -0 00 & 04 LL ti TI 24 9- 1- 0 R 29 ve DI 35 20 20 PH 3 KE NE 77 08 09 AR LL 0 MA Y 15 CA K 0 RE MG TA BL ET 00 12 01 00 5. 5 D 11 HI Ac 00 -1 -0 00 & 04 LL ti 60 9- 1- 0 R 29 ve 11 20 20 PH 4 KE 75 08 09 AR LL 4 MA Y CA K RE GE 00 12 01 00 5. 5 D 11 HI Ac OD 04 -1 -0 00 & 04 LL ti ON 93 9- 1- 0 R 29 ve 97 20 20 PH 1 KE 40 06 08 09 AR LL 0 MA Y MG CA K RE CA PS UL E 00 10 01 02 30 30 D 10 HI Ac 00 -1 -0 .0 & 58 LL ti 60 5- 1- 00 R 38 ve 11 20 20 PH 7 KE 75 08 09 AR LL 4 MA Y CA K RE BA 00 10 12 01 28 28 D 10 HI Ac LZ 55 -1 -1 .0 & 58 LL ti IV 59 5- 8- 00 R 39 ve A 03 20 20 PH 9 KE 28 45 08 08 AR LL 8 MA Y TA CA K BL RE ET FL 00 12 12 00 1. 1 D 11 WE Ac UC 17 -1 -1 00 & 00 LL ti ON 25 2- 8- 0 R 21 IN ve AZ 41 20 20 PH 6 G OL 21 08 08 AR WY E 1 MA CH 15 CA EL 0 RE E MG M TA BL ET RA 00 10 12 02 30 30 D 10 HI Ac NI 17 -1 -1 .0 & 58 LL ti TI 24 5- 8- 00 R 41 ve DI 35 20 20 PH 4 KE NE 77 08 08 AR LL 0 MA Y 15 CA K 0 RE MG TA BL ET DO 00 12 12 00 14 7 D 11 WE Ac XY 59 -1 -1 .0 & 00 LL ti CY 15 2- 8- 00 R 21 IN ve CL 44 20 20 PH 8 G IN 00 08 08 AR WY E 5 MA CH HY CA EL CL RE E AT M E 10 0 MG CA P CI 00 11 12 00 15 30 D 10 HI Ac TA 09 -2 -0 .0 & 87 LL ti LO 34 1- 4- 00 R 72 ve ID 74 20 20 PH 4 KE AM 10 08 08 AR LL 5 MA Y HB CA K R RE 20 MG TA BL ET DO 00 11 12 00 20 10 D 10 HI Ac XY 59 -2 -0 .0 & 87 LL ti CY 15 1- 4- 00 R 69 ve CL 44 20 20 PH 4 KE IN 00 08 08 AR LL E 5 MA Y HY CA K CL RE AT E 10 0 MG CA P 00 11 12 00 46 5 D 10 HI Ac 78 -2 -0 .6 & 87 LL ti 17 1- 4- 00 R 73 ve 05 20 20 PH 8 KE 45 08 08 AR LL 9 MA Y CA K RE 00 11 12 00 20 10 D 10 HI Ac 09 -2 -0 .0 & 87 LL ti 30 0- 4- 00 R 19 ve 85 20 20 PH 4 KE 20 08 08 AR LL 5 MA Y CA K RE ID 00 11 12 00 10 2 D 10 HI Ac OM 78 -2 -0 .0 & 88 LL ti ET 11 4- 4- 00 R 95 ve ORELLANA 83 20 20 PH 3 KE ZI 00 08 08 AR LL NE 1 MA Y CA K 25 RE MG TA BL ET 00 10 12 01 30 30 D 10 HI Ac 00 -1 -0 .0 & 58 LL ti 60 5- 4- 00 R 38 ve 11 20 20 PH 7 KE 75 08 08 AR LL 4 MA Y CA K RE 00 10 12 00 30 30 D 10 HI Ac 00 -1 -0 .0 & 58 LL ti 60 5- 4- 00 R 38 ve 11 20 20 PH 7 KE 75 08 08 AR LL 4 MA Y CA K RE GE 00 10 12 01 30 30 D 10 HI Ac OD 04 -2 -0 .0 & 64 LL ti ON 93 2- 4- 00 R 71 ve 97 20 20 PH 9 KE 40 06 08 08 AR LL 0 MA Y MG CA K RE CA PS UL E NA 00 11 11 00 14 7 D 10 HI Ac ID 09 -0 -2 .0 & 76 LL ti OX 30 4- 0- 00 R 10 ve EN 14 20 20 PH 6 KE 91 08 08 AR LL 50 0 MA Y 0 CA K MG RE TA BL ET RA 00 10 11 01 30 30 D 10 HI Ac NI 17 -1 -2 .0 & 58 LL ti TI 24 5- 0- 00 R 41 ve DI 35 20 20 PH 4 KE NE 77 08 08 AR LL 0 MA Y 15 CA K 0 RE MG TA BL ET AM 00 11 11 00 20 10 D 10 HI Ac OX 09 -0 -2 .0 & 76 LL ti -C 32 4- 0- 00 R 10 ve LA 27 20 20 PH 7 KE V 53 08 08 AR LL 87 4 MA Y 5- CA K 12 RE 5 MG TA BL ET GE 00 10 11 00 30 30 D 10 HI Ac OD 04 -2 -0 .0 & 64 LL ti ON 93 2- 7- 00 R 71 ve 97 20 20 PH 9 KE 40 06 08 08 AR LL 0 MA Y MG CA K RE CA PS UL E CI 00 10 11 00 15 30 D 10 HI Ac TA 09 -2 -0 .0 & 64 LL ti LO 34 2- 7- 00 R 99 ve ID 74 20 20 PH 1 KE AM 10 08 08 AR LL 5 MA Y HB CA K R RE 20 MG TA BL ET RA 00 10 10 00 30 30 D 10 HI Ac NI 17 -1 -2 .0 & 58 LL ti TI 24 5- 3- 00 R 41 ve DI 35 20 20 PH 4 KE NE 77 08 08 AR LL 0 MA Y 15 CA K 0 RE MG TA BL ET BA 00 10 10 00 28 28 D 10 HI Ac LZ 55 -1 -2 .0 & 58 LL ti IV 59 5- 3- 00 R 39 ve A 03 20 20 PH 9 KE 28 45 08 08 AR LL 8 MA Y TA CA K BL RE ET GE 00 10 10 00 60 30 D 10 HI Ac OD 04 -1 -2 .0 & 58 LL ti ON 93 5- 3- 00 R 38 ve 97 20 20 PH 9 KE 40 06 08 08 AR LL 0 MA Y MG CA K RE CA PS UL E AT 68 09 09 00 60 30 AT 20 No Ac EN 38 -0 -1 .0 RI 37 t ti OL 20 3- 1- 00 UM 81 Av ve OL 02 20 20 ai 20 08 08 PH la 25 1 AR bl MA e MG CY TA BL ET LI 00 05 09 03 60 30 FO 61 WA Ac TH 05 -2 -1 .0 OD 17 LK ti IU 40 2- 1- 00 90 ER ve M 02 20 20 CI 4 CA 02 08 08 TY KE RB 5 LL ON PH EY AT AR D E MA ER RY 45 #6 0 53 MG TB SE 00 09 09 00 30 30 AT 20 No Ac RO 31 -0 -1 .0 RI 38 t ti QU 00 4- 1- 00 UM 30 Av ve EL 27 20 20 ai 21 08 08 PH la 20 0 AR bl 0 MA e MG CY TA BL ET 00 03 08 00 30 30 FO 61 WA Ac 00 -2 -2 .0 OD 14 LK ti 60 7- 8- 00 15 ER ve 11 20 20 CI 9 75 08 08 TY KE 4 LL PH EY AR D MA RY #6 53 AB 59 03 08 00 30 30 FO 61 WA Ac IL 14 -1 -2 .0 OD 13 LK ti IF 80 1- 8- 01 ER ve Y 01 20 20 CI 4 20 01 08 08 TY KE 3 LL MG PH EY AR D TA MA BL RY ET #6 53 49 07 08 01 60 30 FO 61 WA Ac 88 -2 -2 .0 OD 21 LK ti 40 2- 8- 00 56 ER ve 54 20 20 CI 9 41 08 08 TY KE 0 LL PH EY AR D MA RY #6 53 00 08 08 00 28 28 FO 61 No Ac 06 -2 -2 .0 OD 23 t ti 21 0- 8- 00 33 Av ve 25 20 20 CI 7 ai 11 08 08 TY la 5 bl PH e AR MA RY #6 53 LA 00 08 08 00 30 30 FO 61 No Ac WY 17 -0 -2 .0 OD [address] 30 5- 8- 00 40 Av ve AL 64 20 20 CI 0 ai 46 08 08 TY la 20 0 bl 0 PH e MG AR MA TA RY BL ET #6 53 LI 00 05 08 02 60 30 FO 61 WA Ac TH 05 -2 -1 .0 OD 17 LK ti IU 40 2- 4- 90 ER ve M 02 20 20 CI 4 CA 02 08 08 TY KE RB 5 LL ON PH EY AT AR D E MA ER RY 45 #6 0 53 MG TB AT 00 05 08 01 60 30 FO 61 WA Ac EN 78 -2 -1 .0 OD 18 LK ti OL 11 9- 4- 29 ER ve OL 07 20 20 CI 2 81 08 08 TY KE 25 0 LL PH EY MG AR D MA TA RY BL ET #6 53 LA 00 07 08 00 30 30 FO 61 No Ac WY 17 -2 -1 .0 OD [address] 30 9- 4- 00 93 Av ve AL 64 20 20 CI 9 ai 25 08 08 TY la 10 5 bl 0 PH e MG AR MA TA RY BL ET #6 53 SE 00 07 08 00 30 30 FO 61 No Ac RO 31 -2 -1 .0 OD 21 t ti QU 00 9- 4- 00 94 Av ve EL 27 20 20 CI 1 ai 21 08 08 TY la 20 0 bl 0 PH e MG AR MA TA RY BL ET #6 53 49 07 08 00 60 30 FO 61 No Ac 88 -2 -0 .0 OD 21 t ti 40 2- 1- 00 56 Av ve 54 20 20 CI 9 ai 41 08 08 TY la 0 bl PH e AR MA RY #6 53 SE 00 07 08 00 30 30 FO 61 WA Ac RO 31 -2 -0 .0 OD 21 LK ti QU 00 2 56 ER ve EL 27 20 20 CI 8 11 08 08 TY KE 10 0 LL 0 PH EY MG AR D MA TA RY BL ET #6 53 LA 00 07 08 00 15 30 FO 61 No Ac WY 17 -2 -0 .0 OD [address] 30 2 1- 56 Av ve AL 64 20 20 CI 6 ai 25 08 08 TY la 10 5 bl 0 PH e MG AR MA TA RY BL ET #6 53 LI 00 05 07 01 60 30 FO 61 WA Ac TH 05 -2 -0 .0 OD 17 LK ti IU 40 2- 3- 00 90 ER ve M 02 20 20 CI 4 CA 02 08 08 TY KE RB 5 LL ON PH EY AT AR D E MA ER RY 45 #6 0 53 MG TB AT 00 05 06 00 30 30 FO 61 No Ac EN 78 -2 -0 .0 OD 17 t ti OL 11 2- 5- 00 90 Av ve OL 07 20 20 CI 5 ai 81 08 08 TY la 25 0 bl PH e MG AR MA TA RY BL ET #6 53 LI 00 05 06 00 60 30 FO 61 No Ac TH 05 -2 -0 .0 OD 17 t ti IU 40 2- 5- 00 90 Av ve M 02 20 20 CI 4 ai CA 02 08 08 TY la RB 5 bl ON PH e AT AR E MA ER RY 45 #6 0 53 MG TB PA 00 03 04 00 30 30 FO 61 No Ac NT 00 -2 -2 .0 OD 14 t ti OP 80 7- 4- 00 15 Av ve RA 60 20 20 CI 8 ai ZO 60 08 08 TY la LE 1 bl PH e SO AR D MA RY 20 #6 53 MG TA B Immunization Name Date Route CVX Reacti Commen Provid Is Given on t er Refuse d 4VHPV [place] VIDAL VACCIN 2008 CHRISTOPHER 3 DOSE SCHEDU LE FOR IM USE IIV3 WELLIN No VACCIN 2007 G, E TEDDY SPLIT E M VIRUS 0.5 ML DOSAGE IM USE Procedures Procedure DOS Code Location Performer Comment [facility] CO EMS STATUTE MILE [facility] A0427 [facility] SERVICE 5 SOFI FARAH ALS CO EMS CO EMS EMERGENCY TRANSPORT LEVEL 1 RAD[facility]OLOGI 06063 [facility] 5 RADIOLOGY III GAUTAM CHEST 2 VIEWS FRONTAL&[place] [address] FRANKIE DAVID TRANSVAGI 2 [facility] [place] [address] FRANKIE DAVID ABDOMEN & 2 [facility] PELVIS INC INC W/O CONTRAST MATERIAL URINE 54689 FRANKIE DAVID 2 [facility] TEST INC INC VISUAL COLOR CMPRSN METHS URNLS DIP 08202 FRANKIE DAVID 2 [facility] STICK/TAB INC INC LET REAGENT AUTO MICROSCOP Y BLOOD 01359 FRANKIE DAVID COUNT 2 [facility] COMPLETE INC INC AUTO&AUTO DIFRNTL WBC VAGINAL 65985 [facility] DELIVERY 2 NIMCO NIMCO ONLY W/POSTPAR DEMETRIO CARE NEURAXIAL 54755 [facility] LABOR 2 ANESTH ANALG/ANE OF THE S PLND BLUE VAGINAL DELIVERY 88687 [facility] NONSTRESS 2 NIMCO NIMCO TEST 58036 [facility] NONSTRESS 2 [facility] NIMCO TEST HOSPITAL 46869 [facility] DISCHARGE 2 NIMCO NIMCO DAY MANAGEMEN T 30 MIN/< US PREG 96501 [facility] UTERUS 2 [facility] REAL TIME [facility]OS[facility] HOSP F/U TRNSABDL [place] FETUS [place] PREG 65985 [facility] UTERUS 2 [facility] W/DETAIL HOSP HOSP [place] 1ST [place] P[place] 24790 [facility] UTERUS 2 NIMCO NIMCO AFTER 1ST TRIMEST 1/ GESTATION INITIAL 29509 [facility] INPATIENT 1 URGENT CONSULT TREATMENT NEW/ESTAB A PT 55 MIN CYTP C/V 36028 PATHOLOGY PATHOLOGY AUTO THIN 0 & & LYR CYTOLOGY CYTOLOGY PREPJ SCR LAB LAB MNL RESCR PHYS BLOOD 84450 FRANKIE DAVID COUNT 0 [facility] C[facility] N PRESSURIZ 32180 FRANKIE DAVID ED/NONPRE 0 [facility] SSURIZED INC INC INHALATIO N TREATMENT HOSPITAL 15763 Trice [facility] DISCHARGE 0 LAMBERT MACIEL C DAY PSC MANAGEMEN T 30 MIN/< SBSQ 70959 [facility] 0 PHYSICIAN BJ CARE/DAY GROUP 35 PCC MINUTES SUBQ 89474 Trice [facility] 0 LAMBERT Chang CARE PER PSC DAY E/M NORMAL SBSQ 62978 [facility] 0 PHYSICIAN BJ CARE/DAY GROUP 35 PCC MINUTES CIRCUMCIS 00955 Trice [facility] ION 0 LAMBERT Chang W/CLAMP/O PSC TH DEV W/BLOCK 1ST 88392 Trice [facility]/YANCY 0 LAM[facility]ERT [facility] CARE [place] RE[place] 7569 FRANKIE DAVID OTHER 0 [facility] CURRENT INC INC OBSTETRIC LACERATIO N VAGINAL 63438 [facility], [facility] 0 [facility] CLINIC OF W/POSTPAR DEMETRIO CARE [facility] NEURAXIAL 57460 [facility], LABOR 0 ANESTH KELSIE Bass ANALG/ANE OF THE S PLND [facility] VAGINAL DELIVERY CUL BACT 12172 COMBINED COMBINED XCPT 0 PHYSICIAN PHYSICIAN URINE S LAB S LAB BLOOD/STO OL AEROBIC ISOL SBSQ 19757 [facility] 0 HEALTH NIMCO CARE/DAY CLINIC OF 15 OLENA MINUTES SBSQ 28800 [facility] 0 HEALTH NIMCO CARE/DAY CLINIC OF 15 OLENA MINUTES SBSQ 91362 [facility] 0 HEALTH NIMCO CARE/DAY CLINIC OF 15 OLENA MINUTES OBSERVATI 75587 [facility] HAR[facility] ON/INPATI 0 PHYSICIAN BJ ENT GROUP HOSPITAL PCC CARE 55 MINUTES 31579 TYE BEJARANOIC 0 [facility]ICAL RICHARD MALDONADO IMAGING PROFILE ASSOCIATE W/O S NON-STRES S TESTING URNLS DIP 19541 [facility] SANDERSON 0 [facility] STICK/TAB INC INC LET RGNT NON-AUTO W/O MICRSCP GLUCOSE 46975 FRANKIE DAVID TOLERANCE 0 [facility] EA ADDL INC INC BEYOND 3 SPECIMENS GLUCOSE 61039 FRANKIE DAVID TOLERANCE 0 [facility] TEST GTT INC INC 3 SPECIMENS GLUCOSE 97538 [facility], POST 0 [facility]ALTH [facility] J GLUCOSE CLINIC OF DOSE [facility] GLUCOSE 46144 [facility], TOLERANCE 0 HEALTH [facility] J TEST GTT CLINIC OF [address] [facility] OBSERVATI 98330 [facility] HAR[facility] ON CARE 0 PHYSICIAN BJ DISCHARGE GROUP PCC MANAGEMEN T INITIAL 78823 [facility] HARPEL OBSERVATI 0 PHYSICIAN BJ ON GROUP CARE/DAY PCC 70 MINUTES 89968 FRANKIE DAVID NONSTRESS 0 [facility] TEST INC INC FTL 20858 FRANKIE DAVID FIBRONECT 0 [facility] IN INC INC CERVICOVA G SECRETION S SEMI-JUSTIN URNLS DIP 73610 [facility] DAVID 0 [facility] STICK/TAB INC INC LET REAGENT AUTO [place]CROSCOP [place] PREG 64226 [facility], UTERUS 0 HEALTH [facility] J AFTER 1ST CLINIC OF TRIMEST [place] [facility] ALPHA-FET 93811 FRANKIE DAVID OPROTEIN 0 [facility] [place] [address] FRANKIE FRANKIE ESTRIOL 0 [facility] INC INC GONADOTRO 24960 FRANKIE DAVID PIN 0 [facility] CHORIONIC INC INC QUANTITAT TANGELA OBSERVATI 26948 [facility], ON CARE 9 HEALTH [facility] J DISCHARGE CLINIC OF MANAGEMEN [facility]ESHA[facility] INITIAL 38573 [facility], OBSERVATI 9 HEALTH [facility]DR[facility] J ON CLINIC OF CARE/DAY [address] [facility] US PREG 09731 [facility], UTERUS 9 HEALTH [facility] REAL TIME CLINIC OF W/IMAGE DCMTN KESHAWN TRANSVAG [facility] IMMUNE 30202 [facility], ADMIN 9 HEALTH [facility] J H1N1 CLINIC OF IM/NASAL INCL [facility]L [facility] CYTP C/V 54957 PATHOLOGY PATHOLOGY AUTO THIN 9 & & LYR CYTOLOGY CYTOLOGY PREPJ SCR LAB LAB MNL RESCR PHYS MOLECULAR 13829 MOLECULAR MOLECULAR DX AMP 9 TARGET PATHOLOGY PATHOLOGY MULTIPLEX LAB LAB 1ST 2 NETWORK NETWORK SEQ INC INC MOLECULAR 40847 MOLECULAR MOLECULAR 9 DIAGNOSTI PATHOLOGY PATHOLOGY CS LAB LAB INTERPRET NETWORK NETWORK ATION & INC INC REPORT MUTATION 80242 MOLECULAR MOLECULAR ID 9 ENZYMATIC PATHOLOGY PATHOLOGY LAB LAB LIG/PRIME NETWORK NETWORK R XTN 1 INC INC SGM EA MOLEC 22954 MOLECULAR MOLECULAR ISOL/XTRJ 9 HP PATHOLOGY PATHOLOGY NUCLEIC LAB LAB ACID EA NETWORK NETWORK TYPE INC INC IADNA 53847 PATHOLOGY PATHOLOGY CHLAMYDIA 9 & & CYTOLOGY CYTOLOGY TRACHOMAT LAB LAB IS AMPLIFIED PROBE TQ MOLECULAR 26260 MOLECULAR MOLECULAR DX AMP 9 TARGET PATHOLOGY PATHOLOGY MULTIPLEX LAB LAB EA ADDL NETWORK NETWORK SEQ INC INC MOLEC 60277 MOLECULAR MOLECULAR SEP&ID HI 9 RESOLU PATHOLOGY PATHOLOGY TQ EACH LAB LAB NUCLEIC NETWORK NETWORK ACID PREP INC INC IADNA 40686 PATHOLOGY PATHOLOGY NEISSERIA 9 & & CYTOLOGY CYTOLOGY GONORRHOE LAB LAB AE AMPLIFIED PROBE TQ GONADOTRO 86872 COMBINED COMBINED PIN 9 PHYSICIAN PHYSICIAN CHORIONIC S LAB S LAB QUANTITAT TANGELA FITTING 62997 BUFFY SCIFRES, SPECTACLE 9 VISION NIA M S XCPT APHAKIA MONOFOCAL FRAMES V2020 CECE RICKETTS 9 VISION NIA M 1 VISN V2103 AJITH RICKETTSO 9 VISION NIA M TO+/-4.00 D SPHER 0.12-2.00 D CYL EA IAADI 96055 FRANKIE DAVID INFLUENZA 9 [facility] B VIRUS INC INC IAADI 33469 FRANKIE DAVID INFFLUENZ 9 [facility] A A VIRUS INC INC URNLS DIP 23111 FRANKIE DAVID 9 [facility] STICK/TAB INC INC LET REAGENT AUTO MICROSCOP Y CULTURE 37671 FRANKIE DAVID BACTERIAL 9 [facility] INC INC QUANTTATI VE COLONY COUNT URINE CULTURE 70221 FRANKIE DAVID BCT 9 [facility] ISOL&PRSM INC INC PTV ID ISOLATE EA URINE URINE 69740 [facility]ANKIE DAVID 9 [facility] TEST INC INC VISUAL COLOR CMPRSN METHS BLOOD 51812 FRANKIE DAVID TYPING 9 [facility] SEROLOGIC INC INC RH (D) SUSCEPTIB 30988 FRANKIE DAVID LTY STDY 9 [facility] ANTIMICRB INC INC IAL MICRO/AGA R DILUTJ BLOOD 20733 FRANKIE DAVID COUNT 9 [facility] COMPLETE INC INC AUTO&AUTO DIFRNTL WBC AMBULANCE A0429 [facility] 9 AMBULANCE AMBULANCE S SERVICE SERVICE EMERGENCY TRANSPORT GROUND A0425 [facility] 9 AMBULANCE AMBULANCE PER SERVICE SERVICE STATUTE MILE GROUND A0425 [facility] MILEAGE 9 COMM VFD COMM VFD PER INC INC STATUTE MILE AMBULANCE A0429 [facility] SERVICE 9 COMM VFD COMM VFD BLS INC INC EMERGENCY TRANSPORT DEEP D9220 GILBERTO DALEY SEDATION/ 9 FOR ALTHEA S GENERAL ORAL&MAXI ANESTHESI LLOFACIAL A-1ST 30 SURGERY MINUTES THER 93505 GILBERTO DALEY PROPH/DX 9 FOR ALTHEA S NJX IV ORAL&MAXI PUSH LLOFACIAL SINGLE/1S SURGERY T SBST/DRUG 4VHPV 08283 HORIZON VIDAL, VACCINE 3 9 [facility] SCHEDULE FOR IM USE UNLISTED 32527 DEPT FOR DEPT FOR SPECIAL 9 PUBLIC SOCIAL SERVICE HLTH SRVS PROCEDURE /REPORT SBSQ 75080 [facility] 9 URGENT SARAH C CARE/DAY TREATMENT 35 ASSOC MINUTES SBSQ 20659 [facility] [place] TA[place] CARE/DAY URGENT 35 TREATMENT MINUTES ASSOC RADIOLOGI 77670 [facility] [place] RYAN C 9 RADIOLOGY THERESE EXAMINATI ON CHEST SINGLE VIEW FRONTAL RADEX 09532 [facility] [place] DAVIS, ABDOMEN 1 9 RADIOLOGY THERESE ANTEROPOS TERIOR VIEW UNLISTED 38705 DEPT FOR DEPT FOR SPECIAL 9 PUBLIC SOCIAL SERVICE HLTH SRVS PROCEDURE /REPORT SIMPLE 37266 [facility] MOTALIB, REPAIR 9 FELA MOHAMMAD SCALP/NEC EMERGENCY A K/AX/SANTHOSH PHYS INC T/TRUNK 2.5CM/< OVA&ARLEN 64197 [facility] ITES 9 [employer] [facility] DIRECT SMEARS CONCENTRA TION & ID CUL BACT 50723 [facility] STOOL 9 [facility] [employer] [facility] AEROBIC ISOL SALMONELL A&SHIGELL SMR PRIM 37009 [facility] SRC CPLX 9 [employer] [facility] SPEC STAIN OVA&ARLEN ITS ORTHOPANT 91640 IN CENTER MAX OGRAM 9 FOR JHON P ORAL&MAXI LLOFACIAL SURGERY COLLECTIO 63521 [facility] N VENOUS 9 BLOOD [facility] URE UNLISTED 35846 DEPT FOR DEPT FOR SPECIAL 9 PUBLIC SOCIAL SERVICE HLTH SRVS PROCEDURE /REPORT COMPRE 95350 DEEPAK SOTELO, AUDIOMETR 9 KELSIE Harrell Y THRESHOLD EVAL SP RECOGNIJ TYMPANOME 91821 DEEPAK SOTELO, TRY 9 KELSIE Harrell UNLISTED 10649 DEPT FOR DEPT FOR SPECIAL 9 PUBLIC SOCIAL SERVICE HLTH SRVS PROCEDURE /[place] [address] [facility] [place] EVELYNE HEAD/BRAI 8 RADIOLOGY FARRUKH L N W/O CONTRAST MATERIAL IADNA 14451 [facility] MULTIPLE 8 DIAGNOSTI DIAGNOSTI ORGANISMS CS IN CS IN DIRECT PROBE TQ CYTP 42463 [facility] CERV/VAG 8 DIAGNOSTI DIAGNOSTI AUTO THIN CS IN CS IN LAYER PREP MNL SCREEN UNLISTED 73786 DEPT FOR DEPT FOR SPECIAL [address] [place] [address] SOCIAL SERVICE [facility] SRVS PROCEDURE /REPORT URNLS DIP 19839 [facility] 8 STICK/TAB [facility] REAGENT AUTO MICROSCOP Y SMR PRIM 93227 [facility] SRC WET 8 [facility] NFCT AGT [facility] TISS SAMANTHA 50879 [facility] SLIDE 8 [facility] SKN/HR/NL [facility] S FNGI/ECTO PARASIT IADNA 67906 [facility] AUDREYGRASS MULTIPLE 8 ORGANISMS [facility] PROBE TQ CULTURE 49626 [facility] BACTERIAL 8 [place] INC QUANTTATI VE COLONY COUNT URINE IIV3 91744 EMERSON WELLING, VACCINE 8 FAMILY CIRA Harrell SPLIT [facility] VIRUS 0.5 E, PLLC ML DOS[place] ADM 92493 EMERSON MANRIQUEZ, PRQ ID 8 FAMILY CIRA [place] SUBQ/IM [facility] NJXS 1 E, PLLC VACCINE UNLISTED 52920 DEPT FOR DEPT FOR SPECIAL [address] [place] [address] SOCIAL SERVICE [facility] SRVS PROCEDURE /REPORT 1 VISN V2103 [facility] BUTTER[place] PLANO 8 MELVIN, Ziggy G MELVIN, J G TO+/-4.00 D SPHER 0.12-2.00 D CYL EA FRAMES V2020 BUTTER[facility] BUTTERFIE PURCHASES 8 Ziggy CHARLES, J G OPHTH 79429 [facility] BUTTERFI[employer] MEDICAL 8 Ziggy CHARLES, Ziggy G XM&EVAL COMPRE NEW PT 1/> VST UNLISTED 05475 DEPT FOR DEPT FOR SPECIAL PUBLIC SOCIAL SERVICE [facility] SRVS PROCEDURE /REPORT GROUND A0425 Caro Nut MILEAGE 8 AMBULANCE AMBULANCE PER STATUTE AUTHORITY AUTHORITY MILE AMBULANCE A0429 TRES CO TRES CO SERVICE 8 AMBULANCE AMBULANCE S [place] [address] RADIOLOGY LEVY, A CERVICAL 8 SERVICES R SP[place] W/[place] [address] RADIOLOGY GAGE, HEAD/BRAI 8 SERVICES DHIRENKUM N W/[place] [address] RADIOLOGY GAGE, MAXILLOFA 8 SERVICES DHIRENKUM CIAL W/O AR CONTRAST MATERIAL UNLISTED 82416 DEPT FOR DEPT FOR [address] SRVS PROCEDURE /REPORT RADIOLOGI 40088 PFLANZE, PFLANZE, C 8 KELSIE IGLESIAS EXAMINATI ON FEMUR 2 VIEWS RADEX 79251 BRONFMANCELIAAN, ABDOMEN 1 8 THERESE Chicas ANTEROPOS TERIOR VIEW RADEX 37801 KADNERSHAHIDER, ABDOMEN 1 8 ALTHEA Trinh ANTEROPOS TERIOR VIEW RADIOLOGI 67949 NIECY PEMBERTON, C EXAM 8 ALTHEA Trinh CHEST 2 VIEWS FRONTAL&L ATERAL RADIOLOGI 22691 MARTITA ANDERS, C 8 FARHANA Pierec EXAMINATI ON CHEST SINGLE VIEW FRONTAL RADEX 14944 HARTINGJODEEING, ABDOMEN 1 8 FARHANA Pierce ANTEROPOS TERIOR VIEW RADEX 31782 JEFFREY, JEFFREY, ABDOMEN 1 8 ALTHEA Messina ANTEROPOS TERIOR VIEW ECG 57697 SOBCZYK, SOBDEYAYK, ROUTINE 8 TAB L TAB L ECG W/LEAST 12 LDS I&R ONLY ECHO 12985 LAMBERT VERDIN TRANSTHOR 8 MUKESH [place] AC R-T 2D W/WO M-MODE REC COMP DOP 61577 LAMBERT VERDIN ECHOCARD 8 MUKESH [place] COLOR FLOW VELOCITY MAPPING DOPPLER 94621 LAMBERT VERDIN ECHOCARD 8 MUKESH [place] PULSE WAVE W/SPECTRA L DISPLAY Encounters Encounter Start End Date Code Location Performer Type Date EMERGENCY [address] [facility] 5 5 FELA SIMRAN DEPARTMEN EMERGENCY T VISIT PHYS MODERATE SEVERITY EMERGENCY 90064 FRANKIE 2 2 [facility] T [facility] LOW/MODER SEVERITY HOSPITAL FRANKIE - 2 2 [facility] OUTPATIEN [facility] FRANKIE - 2 2 [facility] OFF[facility] 61135 KSENIA MCCORMACK OUTPATIEN 2 2 [facility] T VISIT 15 MINUTES HOSPITAL FRANKIE - 2 2 [facility] INPATIENT [facility]TRAL - 2 2 [facility] T OFFICE 43013 ADRIA [place] OUTPATIEN 2 2 DANISH DANISH T VISIT 25 MINUTES HOSPITAL [facility]AL - 2 2 [facility] EMERGENCY 48683 FRANKIE 2 2 [facility] T VISIT LOW/MODER SEVERITY HOSPITAL FRANKIE - 2 2 [facility] EMERGENCY 00773 GRANDE LEXI GRANDE LEXI 2 2 [facility] T VISIT HIGH/URGE NT SEVERITY OFFICE 33656 [facility] OUTPATI[facility] 0 0 [facility] T VISIT CLINIC OF 25 [place] MINUTES OFFICE 92244 FRANKIE DAVID OUTPATIEN 0 0 [facility] [employer] [place] [address] CENTER CENTER MINUTES EMERGENCY 79981 EMELIA ZEE 0 0 EMERGENCY III, DEPARTMEN SERVICES KELSIE T VISIT HIGH/URGE ASSOCIATE NT S SEVERITY HOSPITAL FRANKIE - 0 0 [facility] EMERGENCY 42560 FRANKIE 0 0 [facility] T VISIT LOW/MODER SEVERITY OFFICE 93466 [facility], OUTPATIEN 0 0 [facility] T VISIT CLINIC OF 15 MINUTES [place] [facility] FRANKIE - 0 0 [facility] INPATIENT [facility] FRANKIE - 0 0 [facility]PAT[facility] FRANKIE - 0 0 [facility] OUTPATIEN INC T OFFICE 51623 WOMEN'S DOREEN MCCORMACKEN 0 0 HEALTH KENDRA Trinh T VISIT CLINIC OF [address] [facility] [place] [place] FRANKIE - 0 0 [facility] OUTPATIEN INC T OFFICE 67035 PAL[place] DOW OUTPATIEN 0 0 JOSE MIGUEL GILLESPIE W T VISIT 15 MINUTES [facility] T OFFICE [id number] [facility] OUT[facility]IEN 9 9 [facility] Trinh T VISIT CLINIC OF 15 MINUTES [facility] EMERGENCY 26907 EMELIA FERNANDEZ, DEPT 9 9 EMERGENCY [facility] VISIT SERVICES O HIGH SEVERITY& ASSOCIATE THREAT S [facility] 06932 [place] OUTPATIEN 9 9 JOSE MIGUEL W JOSE MIGUEL W T VISIT 15 MINUTES [facility] - 9 9 [facility] OUTPATIEN INC T EMERGENCY 77113 [facility] 9 9 [facility] DEPARTMEN INC T VISIT LOW/MODER SEVERITY EMERGENCY 50421 EMELIA FERNANDEZ, 9 9 EMERGENCY [facility] DEPARTMEN SERVICES O T VISIT MODERATE ASSOCIATE SEVERITY S [facility] - 9 9 [facility] OUTPATIEN INC T EMERGENCY 47743 EMELIA GARCIA, 9 9 EMERGENCY DM S DEPARTMEN SERVICES T VISIT HIGH/URGE ASSOCIATE NT S SEVERITY OFFICE 29509 [place] 9 9 [facility] T NEW 30 GROUP MINUTES EMERGENCY [address] [place], 9 9 [facility] T VISIT HIGH/URGE NT SEVERITY OFFICE 12041 [facility] OUTPATIEN 9 9 HEALTH HIGH T VISIT CENTRAL 15 BANK ACCT MINUTES OFFICE 48087 [facility] OUTPATIEN 9 9 HEALTH HIGH T VISIT CENTRAL 15 BANK ACCT MINUTES OFFICE 23143 HORIZON VIDAL, OUTPATIEN 9 9 [facility]ALTHCAR KARL NEW 30 E CENTER MINUTES EMERGENCY 56938 [facility] A T VISIT PHYS INC MODERATE SEVERITY OFFICE 01223 EMERSON MANRIQUEZ, OUTPATIEN 9 9 FAMILY CIRA Harrell T VISIT [facility]ALTH[facility] 15 E, PLLC MINUTES OFFICE 68095 [place] [facility] MAX, OUTPATIEN 9 9 FOR JHON Hale ANT 10 ORAL&MAXI MINUTES LLOFACIAL SURGERY OFFICE 46673 EMERSON MANRIQUEZ, OUTPATIEN 9 9 FAMILY CIRA Harrell T VISIT [facility] 15 E, PLLC MINUTES [facility] 69961 EMERSON MANRIQUEZ OUTPATIEN 9 9 FAMILY CIRA Harrell T VISIT [facility] 15 E, PLLC MINUTES OFFICE 53770 DEEPAK SOTELO, CONSULTAT 9 9 KELSIE LOZANO NEW/ESTAB PATIENT 40 MIN EMERGENCY 77983 [facility], 8 8 FELA SORIANO EMERGENCY T VISIT PHYS INC HIGH/URGE NT SEVERITY PERIODIC 09413 EMERSON MANRIQUEZ, PREVENTIV 8 8 FAMILY CIRA Harrell E MED EST HEALTHCAR PATIENT E, PLLC 12-17YRS EMERGENCY 48525 JUAN LUIS [place], 8 8 FELA SORIANO EMERGENCY T VISIT PHYS INC HIGH/URGE NT SEVERITY OFFICE 49393 EMERSON MANRIQUEZ OUTPATIEN 8 8 FAMILY CIRA Harrell T VISIT HEALTHCAR 15 E, PLLC MINUTES EMERGENCY 42972 JUAN LUIS [place], 8 8 FELA SORIANO EMERGENCY T VISIT PHYS INC HIGH/URGE NT SEVERITY EMERGENCY 43486 [facility] 8 8 [facility] COMM[facility] T VISIT HOSPITAL MODERATE SEVERITY [facility] - 8 8 OUTPATIEN [facility] OFFICE 90890 EMERSON MANRIQUEZ, OUTPATIEN 8 8 FAMILY CIRA Harrell T VISIT HEALTHCAR 15 E, [facility] 98286 [facility], 8 8 FELA ORTEZ [facility] EMERGENCY A T VISIT PHYS INC MODERATE SEVERITY EMERGENCY 32055 [facility] 8 8 [facility] T VISIT HOSPITAL LOW/MODER SEVERITY INITIAL 51557 EMERSON MANRIQUEZ, PREVENTIV 8 8 FAMILY CIRA Pierce [facility], [facility] NEW PT AGE 12-17 YR EMER[address]ENC[address] [facility], 8 8 FELA EDDY [facility] EMERGENCY T VISIT MODERATE PHYSICIAN SEVERITY INC EMERGENCY 01226 MYNOR LOWE, 8 8 DILSHAD Harrell [facility] T VISIT HIGH/URGE NT SEVERITY
--- OUTSIDE RECORDS SUMMARY | 2017-01-05 08:30 | External Medical Summary Rpt ---
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 1 8 FARHANA Pierce ANTEROPOS TERIOR VIEW RADEX 91380 JEFFREY, JEFFREY, ABDOMEN 1 8 ALTHEA Messina ANTEROPOS TERIOR VIEW ECG 97141 SOBCZYK, SOBDEYAYK, ROUTINE 8 TAB L TAB L ECG W/LEAST 12 LDS I&R ONLY ECHO 62542 LAMBERT VERDIN TRANSTHOR 8 MUKESH MAYORGA AC R-T 2D W/WO M-MODE REC COMP DOP 89503 LAMBERT VERDIN ECHOCARD 8 MUKESH [place]ORGA COLOR FLOW VELOCITY MAPPING DOPPLER 11312 LAMBERT VERDIN ECHOCARD 8 MUKESH [place]ORGA PULSE WAVE W/SPECTRA L DISPLAY Encounters Encounter Start End Date Code Location Performer Type Date EMERGENCY 66126 [facility] 5 5 FELA SIMRAN DEPARTMEN EMERGENCY T VISIT PHYS MODERATE SEVERITY EMERGENCY 79782 FRANKIE 2 2 [facility] T VISIT LOW/MODER SEVERITY HOSPITAL FRANKIE - 2 2 [facility] OUTPATIEN CRITICAL ACCESS HOSPITAL HOSPITAL FRANKIE - 2 2 [facility] OFF[facility] 30411 KSENIA MCCORMACK OUTPATIEN 2 2 [facility] N[facility]CO T VISIT 15 MINUTES HOSPITAL FRANKIE - 2 2 [facility] INPATIENT [facility] HOSPITAL CENTRAL - 2 2 Y[facility] OUTPATIEN HOSP T OFFICE 15311 ADRIA [place] OUTPATIEN 2 2 DANISH DANISH T VISIT 25 MINUTES HOSPITAL CENTRAL - 2 2 Y[facility]ANI OUTPATIEN HOSP EMERGENCY 89694 FRANKIE 2 [address] [facility] T VISIT LOW/MODER SEVERITY HOSPITAL FRANKIE - 2 2 [facility] EMERGENCY 41271 GRANDE LEXI GRANDE LEXI 2 2 [facility] T VISIT HIGH/URGE NT SEVERITY OFFICE 18608 [facility] OUT[facility] 0 0 HEALTH [facility]IMCO T VISIT CLINIC OF 25 OLENA MINUTES OFFICE 55915 FRANKIE DAVID OUTPATIEN 0 0 [place] [facility] [place] [address] CENTER CENTER MINUTES EMERGENCY 11009 EMELIA ZEE 0 0 EMERGENCY III, DEPARTMEN SERVICES KELSIE T VISIT HIGH/URGE ASSOCIATE NT S SEVERITY HOSPITAL FRANKIE - 0 0 [facility] EMERGENCY 30298 FRANKIE 0 [address] [facility] T VISIT LOW/MODER SEVERITY OFFICE 16587 [facility], OUTPATIEN 0 0 [facility] T VISIT CLINIC OF 15 MINUTES [facility] FRANKIE - 0 0 [facility] INPATIENT [facility] FRANKIE - 0 0 [facility]PATIENT [facility] HOSPITAL FRANKIE - 0 0 [facility] OUTPATIEN INC T OFFICE 78847 [facility] DOREEN MCCORMACKEN 0 0 HEALTH KENDRA Trinh T VISIT CLINIC OF 10 MINUTES [facility] FRANKIE - 0 0 [facility] OUTPATIEN INC T OFFICE 79059 [place] OUTPATIEN 0 0 JOSE MIGUEL GILLESPIE W T VISIT 15 MINUTES HOSPITAL FRANKIE - 0 0 [facility] OUTPATIEN INC T OFFICE 91401 [facility] KSENIA OUTPATIEN 9 9 HEALTH KENDRA Trinh T VISIT CLINIC OF 15 MINUTES [facility] EMERGENCY DEPARTMENT EMERGENCY 34269 EMELIA FERNANDEZ, DEPT 9 9 EMERGENCY KUSHAL VISIT SERVICES O HIGH SEVERITY& ASSOCIATE THREAT S [facility] 41220 [place] OUTPATIEN 9 9 JOSE MIGUEL W JOSE MIGUEL W T VISIT 15 MINUTES HOSPITAL FRANKIE - 9 9 [facility] OUTPATIEN INC T EMERGENCY 46514 FRANKIE 9 9 [facility] DEPARTMEN INC T VISIT LOW/MODER SEVERITY EMERGENCY 18236 EMELIA FERNANDEZ, 9 9 EMERGENCY KUSHAL DEPARTMEN SERVICES O T VISIT MODERATE ASSOCIATE SEVERITY S HOSPITAL FRANKIE - 9 9 [facility] OUTPATIEN INC T EMERGENCY 70509 EMELIA GARCIA, 9 9 EMERGENCY DM S DEPARTMEN SERVICES T VISIT HIGH/URGE ASSOCIATE NT S SEVERITY OFFICE 52466 BLANCHE RICO 9 9 [facility] P T NEW 30 GROUP MINUTES EMERGENCY [address] ESTEBAN, 9 9 [facility] T VISIT HIGH/URGE NT SEVERITY OFFICE 80665 [facility] EDDIE OUTPATIEN 9 9 HEALTH HIGH T VISIT CENTRAL 15 BANK ACCT MINUTES OFFICE 39899 [facility] EDDIE OUTPATIEN 9 9 HEALTH HIGH T VISIT CENTRAL 15 BANK ACCT MINUTES OFFICE 24796 HORIZON VIDAL, OUTPATIEN 9 9 HEALTHCAR KARL NEW 30 E CENTER MINUTES EMERGENCY 18354 [facility] 9 [facility] EM[facility]ENC[facility] A T VISIT PHYS INC MODERATE SEVERITY OFFICE 18838 EMERSON MANRIQUEZ, OUTPATIEN 9 9 FAMILY CIRA Harrell T VISIT HEALTHCAR 15 E, PLLC MINUTES OFFICE 71340 [place] [facility] MAX, OUTPATIEN 9 9 FOR JHON Hale ANT 10 ORAL&MAXI MINUTES LLOFACIAL SURGERY OFFICE 48522 EMERSON MANRIQUEZ, OUTPATIEN 9 9 FAMILY CIRA Harrell T VISIT HEALTHCAR 15 E, PLLC MINUTES [facility] 9 [facility] OFF[facility] 06145 EMERSON MANRIQUEZ OUTPATIEN 9 9 FAMILY CIRA Harrell T VISIT HEALTHCAR 15 E, PLLC MINUTES OFFICE 70932 DEEPAK SOTELO, CONSULTAT 9 9 KELSIE LOZANO NEW/ESTAB PATIENT 40 MIN EMERGENCY 03737 [facility], 8 8 FELA SORIANO EMERGENCY T VISIT PHYS INC HIGH/URGE NT SEVERITY PERIODIC 87246 EMERSON MANRIQUEZ, PREVENTIV 8 8 FAMILY CIRA Harrell E MED EST HEALTHCAR PATIENT E, PLLC 12-17YRS EMERGENCY 26914 JUAN LUIS [place], 8 8 FELA SORIANO EMERGENCY T VISIT PHYS INC HIGH/URGE NT SEVERITY OFFICE 87146 EMERSON MANRIQUEZ OUTPATIEN 8 8 FAMILY CIRA Harrell T VISIT HEALTHCAR 15 E, PLLC MINUTES EMERGENCY 83899 JUAN LUIS [place], 8 8 FELA SORIANO EMERGENCY T VISIT PHYS INC HIGH/URGE NT SEVERITY EMERGENCY 14042 [facility] 8 8 [facility] T VISIT HOSPITAL MODERATE SEVERITY [facility] - 8 8 OUTPATIEN [facility] HOSPITAL OFFICE 21652 EMERSON MANRIQUEZ, OUTPATIEN 8 8 FAMILY CIRA Harrell T VISIT HEALTHCAR 15 E, [facility] 29383 [facility], 8 8 FELA ORTEZ [facility] EMERGENCY A T VISIT PHYS INC MODERATE SEVERITY [facility]GENCY 24527 [facility] 8 8 [facility] T VISIT HOSPITAL LOW/MODER SEVERITY INITIAL 89918 EMERSON MANRIQUEZ, PREVENTIV 8 8 FAMILY CIRA Pierce [facility], [facility] NEW PT AGE 12-17 YR EMERGENCY 86159 [facility], 8 8 FELA EDDY [facility] EMERGENCY T VISIT MODERATE PHYSICIAN SEVERITY INC EMERGENCY 75348 MYNOR LOWE, 8 8 DILSHAD Harrell [facility] T VISIT HIGH/URGE NT SEVERITY
--- OUTSIDE RECORDS SUMMARY | 2017-01-05 08:32 | External Medical Summary Rpt ---
Demographics Preferred Language Yi Marital Status Unknown Christianity Affiliation Unknown Race Unknown Ethnic Group Unknown Author Author , Organization [employer] Address Unknown Phone Unavailable Purpose Continuity of Care Document - through 2016 Immunization No patient found.
--- OUTSIDE RECORDS SUMMARY | 2017-01-05 08:32 | External Medical Summary Rpt ---
Demographics Preferred Language Albanian Marital Status Unknown Temple Affiliation Unknown Race Unknown Ethnic Group Unknown Author Author , Organization [employer] Address Unknown Phone Unavailable Purpose Continuity of Care Document - through 2016 Immunization No patient found.
== END 2017-01-04 21:48 | disposition home or self-care (01) ==
LOC: ER 18:14
PROVIDERS: General Practice
DX: S29.019A Strain of muscle and tendon of unspecified wall of thorax, initial encounter (principal); Y93.E9 Activity, other interior property and clothing maintenance